=== PATIENT | female | born 1940 | race Caucasian/White ===

== ENCOUNTER 2020-05-06 09:55 | Outpatient (CLI) | payer MEDICARE, SELFPAY ==
--- NOTE | ~2020-05-06 | MM_ITS ---
EXAMINATION: MM screening mammo implant BI HISTORY: Screening mammogram. Status post bilateral mastectomy. TECHNIQUE: Craniocaudal and mediolateral oblique 3-D tomosynthesis images with implant displacement a nd synthetic 2-D images were generated. Craniocaudal and mediolateral oblique views of the breasts wi thout implant displacement were obtained using full field digital mammography. CAD analysis was submi tted and interpreted. COMPARISON: Comparison to multiple prior studies sequentially, with oldest reviewed study dated 10/08. BREAST PARENCHYMAL COMPOSITION: The breasts are almost entirely fatty. Only minimal residual breast t issue is present. FINDINGS: There are bilateral subpectoral saline implants. There is no evidence of suspicious mass, c alcification, or architectural distortion to suggest malignancy in either breast. There has been no s uspicious interval change. IMPRESSION: 1. No mammographic evidence of malignancy. 2. Recommend routine screening mammography in one year. BI-RADS Category 1: Negative Reviewed, dictated and finalized at location A.
== END 2020-05-06 09:56 | disposition home or self-care (01) ==
LOC: ANHIMG 10:00
PROVIDERS: PCP Internal Medicine; Visit Provider Obstetrics & Gynecology Gynecology
DX: Z12.31 Encounter for screening mammogram for malignant neoplasm of breast (principal)
CPT/HCPCS: 77067

== ENCOUNTER 2020-10-24 06:54 | Outpatient (NON) | payer MEDICARE, SELFPAY ==
[2020-10-25 01:18] LABS: SARS-CoV-2 RNA PCR Negative
== END 2020-10-24 06:55 ==
LOC: ANHCOVIDDT 07:02
PROVIDERS: PCP Internal Medicine; Visit Provider Nurse Practitioner
DX: Z20.828 Contact with and (suspected) exposure to other viral communicable diseases (principal); R19.7 Diarrhea, unspecified
CPT/HCPCS: 87635; C9803; U0003

== ENCOUNTER 2020-11-17 12:43 | Outpatient (CLI) | payer MEDICARE, SELFPAY ==
--- NOTE | ~2020-11-17 | XR_ITS ---
EXAMINATION: XR chest 2V EXAM DATE: 11/17/2020 12:59 INDICATION: Shortness of breath, history COPD and bronchitis. TECHNIQUE: Frontal and lateral projections of the chest obtained and reviewed. Comparison is made to prior examination from 12/13/2017. FINDINGS: Left midlung zone granuloma. The lungs are otherwise clear. There are no pleural effusions . The cardiomediastinal silhouette is within normal limits. There is no pneumothorax suspected. Th e bones and soft tissues are unremarkable. IMPRESSION: No acute cardiopulmonary findings. Reviewed, dictated and finalized at location B. 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
== END 2020-11-17 12:44 | disposition home or self-care (01) ==
PROVIDERS: PCP Internal Medicine; Visit Provider Nurse Practitioner
DX: R06.02 Shortness of breath (principal)
CPT/HCPCS: 71046

== ENCOUNTER 2021-05-31 10:46 | Emergency (ER) | payer MEDICARE, SELFPAY ==
[2021-05-31 10:48] VITALS: BP 153/104; PULSE 82; RESP 20; TEMP 36.5; O2SAT 95
[2021-05-31 11:50] LABS: Basophils Absolute Auto 0.1 K/mm3 (0.0-0.1); Basophils Percent Auto 0.5 % (0.2-1.2); Eosinophils Absolute Auto 0.1 K/mm3 (0-0.3); Hematocrit 40.7 % (37.0-47.0); Hemoglobin 12.8 g/dL (12.0-15.0); Immature Granulocyte Absolute 0.03 K/mm3 (0.00-0.031); Immature Granulocyte Percent A 0.3 % (0-0.5); Lymphocytes Absolute Auto 0.85 K/mm3 (0.9-3.2); Lymphocytes Percent Auto 8.2 % (18.3-44.2); Mean Corpuscular HGB Conc 31.4 g/dl (32-36); Mean Corpuscular Volume 95.3 fl (80-100); Mean Platelet Volume 9.9 fl (7.4-10.4); Monocytes Absolute Auto 0.7 K/mm3 (0.1-0.6); Monocytes Percent Auto 6.6 % (2.6-8.5); Neutrophils Absolute Auto 8.7 K/mm3 (1.3-6.7); Neutrophils Percent Auto 83.4 % (45.5-73.1); Platelet Count Result 243 k/mm3 (150-375); Red Blood Count 4.27 M/mm3 (4.2-5.4); Red Cell Distribution Width 13.8 % (11.5-14.5); White Blood Count 10.4 K/mm3 (4.5-10.0)
[2021-05-31 11:53] LABS: Add Urine Microscopic? NO; Appearance Urine Clear (Clear); Bilirubin Urine Negative (Negative); Blood Urine Negative (Negative); Color Urine Straw (Yellow); Glucose Urine UA Negative (Negative); Ketones Urine Negative (Negative); Leukocyte Esterase Ur Negative LEU/UL (Negative); Nitrate Urine Negative (Negative); Protein Urine Negative (Negative); Specific Grav Ur 1.008 (1.001-1.035); Urobilinogen Urine Negative mg/dL (<2.0)
[2021-05-31 12:01] LABS: Alanine Aminotransferase 14 U/L (4-35); Albumin Level 4.1 g/dL (3.5-5.1); Alkaline Phosphatase 107 U/L (38-126); Anion Gap 4 mmol/L (8-16); Aspartate Amino Transferase 23 U/L (14-36); Bilirubin,Total 0.4 mg/dL (0.2-1.3); Blood Urea Nitrogen 17 mg/dL (7-17); Carbon Dioxide 32 mmol/L (22-30); Chloride 106 mmol/L (98-107); Estimated CRCL calculation 31 ml/min; Estimated Glomerular Filt Rate 43; Glucose 119 mg/dL (65-110); Lipase 145 U/L (23-300); Potassium 4.3 mmol/L (3.4-5.0); Sodium 142 mmol/L (137-145)
--- NOTE | 2021-05-31 12:15 | PC.NURSE ---
pt left stating that she has been here for a long time, pt encouraged to stay, politely declined. pt was asked to speak to Dr Loredo, regarding lab work that was completed. pt asked to return if s/s increase or worsen
== END 2021-05-31 12:15 | disposition left against medical advice (07) ==
PROVIDERS: Emergency Provider Emergency Medicine; PCP Internal Medicine
DX: R10.31 Right lower quadrant pain (principal)
CPT/HCPCS: 36415; 80053; 81003; 83690; 85025; 99199

== ENCOUNTER → 2021-06-11 17:30 | Outpatient (CLI) | payer MEDICARE, SELFPAY ==
--- NOTE | ~2021-06-11 | MM_ITS ---
EXAMINATION: MM screening mammo implant BI HISTORY: Screening mammogram TECHNIQUE: Craniocaudal and mediolateral oblique 3-D tomosynthesis images with implant displacement a nd synthetic 2-D images were generated. Craniocaudal and mediolateral oblique views of the breasts wi thout implant displacement were obtained using full field digital mammography. CAD analysis was submi tted and interpreted. COMPARISON: Comparison to multiple prior studies sequentially, with oldest reviewed study dated 11/25. BREAST PARENCHYMAL COMPOSITION: The breasts are almost entirely fatty. FINDINGS: There are bilateral breast implants. There is no evidence of suspicious mass, calcification , or architectural distortion to suggest malignancy in either breast. There has been no suspicious in terval change. IMPRESSION: 1. No mammographic evidence of malignancy. 2. Recommend routine screening mammography in one year. BI-RADS Category 1: Negative Reviewed, dictated and finalized at location A.
== END ==
PROVIDERS: Visit Provider Obstetrics & Gynecology Gynecology
DX: Z12.31 Encounter for screening mammogram for malignant neoplasm of breast (principal)
CPT/HCPCS: 77067

== ENCOUNTER → 2021-07-15 12:04 | Outpatient (CLI) | payer MEDICARE, SELFPAY ==
--- NOTE | ~2021-07-15 | DEXA_ITS ---
Bone Density Report Name: Nikkie Rodríguez Age: 80 Sex: Female Ethnicity: White Date of : 1940 Indication: osteopenia; height loss; postmenopausal Referring Provider: ASHANTI PAEZ Study: Bone densitometry was performed. Exam Date: July 15, 2021 Accession number: [id number] Bone Density: Region BMD T-score Z-score Classification AP Spine (L1, L4) 1.049 0.1 2.7 Normal Femoral Neck (Left) 0.703 -1.3 0.9 Osteopenia Total Hip (Left) 0.792 -1.2 0.8 Osteopenia Femoral Neck (Right) 0.672 -1.6 0.6 Osteopenia Total Hip (Right) 0.726 -1.8 0.2 Osteopenia Total Hip Mean 0.759 -1.5 0.5 Osteopenia World Health Organization criteria for BMD impression classify patients as: Normal (T-score at or above -1.0), Osteopenia (T-score between -1.0 and -2.5), or Osteoporosis (T-score at or below -2.5). 10-year Fracture Risk(1): Major Osteoporotic Fracture 13% Hip Fracture 3.3% Reported Risk Factors: [place] (), Neck BMD=0.672, BMI=24.2 (1) FRAX(R) Version 3.08. Fracture probability calculated for an untreated patient. Fracture probability may be lower if the patient has received treatment. Previous Exams: Region Exam Age BMD T-score BMD Change BMD Change Date g/cm2 vs Baseline vs Previous AP Spine(L1, L4) 07/15/2021 80 1.049 0.1 0.099* 0.046* 02/07/2019 78 1.003 -0.3 0.053* -0.196* 10/28/2015 74 1.200 1.5 0.250* 0.214* 11/10/2009 68 0.985 -0.5 0.035* 0.035* 10/02/2007 66 0.950 -0.8 Total Hip(Left) 07/15/2021 80 0.792 -1.2 -0.179* -0.028* 02/07/2019 78 0.819 -1.0 -0.151* -0.085* 10/28/2015 74 0.905 -0.3 -0.065* 0.101* 09/27/2013 72 0.804 -1.1 -0.166* -0.068* 11/10/2009 68 0.872 -0.6 -0.098* -0.098* 10/02/2007 66 0.970 0.2 Total Hip(Right) 07/15/2021 80 0.726 -1.8 -0.172* 0.003 02/07/2019 78 0.723 -1.8 -0.175* -0.100* 10/28/2015 74 0.823 -1.0 -0.074* 0.051* 09/27/2013 72 0.771 -1.4 -0.126* -0.077* 11/10/2009 68 0.848 -0.8 -0.049* -0.049* 10/02/2007 66 0.897 -0.4 *Denotes significance at 95% confidence level, LSC for AP Spine = 0.022 g/cm2, LSC for Total Hip = 0.027 g/cm2 Clinical Information Provided by Patient: Has used the following medications: Vitamin D, Calcium Pa
== END ==
PROVIDERS: Visit Provider Obstetrics & Gynecology Gynecology
DX: Z78.0 Asymptomatic menopausal state (principal); M85.851 Other specified disorders of bone density and structure, right thigh; M85.852 Other specified disorders of bone density and structure, left thigh
CPT/HCPCS: 77080

== ENCOUNTER → 2021-08-04 16:14 | Outpatient (CLI) | payer MEDICARE, SELFPAY ==
--- NOTE | ~2021-08-04 | US_ITS ---
EXAMINATION: US thyroid EXAM DATE: 08/04/2021 16:33 INDICATION: E04.2 - Nontoxic multinodular goiter, thyroid toxicosis. TECHNIQUE: Multiple grayscale and Doppler images of the thyroid were obtained (by a technologist who performed the scan) and subsequently reviewed. Individual nodules and recommendations may be reporte d in accordance with TI-RADS system as designated by the 2017 ACR White Paper TI-RADS committee. Comp arison is made to prior examination from 10/09/19, 06/13/2019. FINDINGS: The right there are lobe measures 5.6 x 1.2 x 2.5 cm, the left measuring 5.1 x 2.2 x 2.3 cm. There is mildly diffusely heterogeneous thyroid echogenicity. There are some numerous scattered small thyroid nodules, largest solid nodule in the left thyroid lobe measuring up to 1 cm, not significantly gomez ed for over 2 years. These nodules are most likely benign. IMPRESSION: Multinodular goiter, stable. Consider follow-up thyroid ultrasound in 2 years. Reviewed, dictated and finalized at location A.
== END ==
PROVIDERS: PCP Internal Medicine; Visit Provider Internal Medicine Endocrinology, Diabetes & Metabolism
DX: E04.2 Nontoxic multinodular goiter (principal)
CPT/HCPCS: 76536

== ENCOUNTER 2021-09-10 12:30 | Outpatient (RCR) | payer MEDICARE, SELFPAY ==
--- NOTE | 2021-08-13 11:35 | OTOPEVAL ---
OCCUPATIONAL THERAPY INITIAL EVALUATION REPORT 08/13/21 Thank you for referring Nikkie Rodríguez to [facility].? The patient is scheduled to be seen for therapy? 1x/week for 4 weeks. Please review, sign, date and return this plan of care TREVOR. I agree with and certify that the following plan of care is medically necessary. Referring Physician Date Referring Provider: BASIL Bell *OT Outpatient Evaluation Start: 08/13/21 10:25 Outpatient Past Medical History Past Medical History Source of Past Medical History Recalled from Previous Visit, Confirmed with Patient/Family Neurological History Hx Transient Ischemic Attacks (TIA) Yes Respiratory History Hx Chronic Obstructive Pulmonary Disease Yes (COPD) Musculoskeletal History Hx Arthritis Yes Hx Osteoporosis Yes Reproductive History Hx Post Menopausal Yes Evaluation Information Problem Diagnosis Pain in right hand Cause OA Subjective Information Patient presents today wearing Query Text:As Reported By Patient/ a compression glove on the Family right hand that she has been wearing for some pain relief. She also takes Tylenol or Aleve for pain. Prior Level of Function Activity Level (Last 3 Months) Hand Dominance Right Activity of Daily Living Ability Independent Indoor/Home Mobility Independent Community Mobility Independent Cooking Yes Cleaning Yes Laundry Yes Shopping Yes Driving Yes Comments Additional Prior Level of Function Patient lives alone and is Comments independent with ADLs and housework. She gardens and states her hands get really sore the day after she does her gardening. Pain Assessment Timing of Pain Assessment Timing of Pain Assessment Assessment Pain Scale Pain Scale Used Numeric (1 - 10) Self Report Pain Assessment Left Hand(s) Reported Pain Level 3 Pain Description Aching,Dull Right Hand(s) Reported Pain Level 0 Lowest Pain Intensity 0 Greatest Pain Intensity 8 Pain Score Pain Score 0,3: Self Report Interventions Used Interventions Used By Clinicians Education,Exercise,Heat Upper Extremity Range of Motion Scapular/ Shoulder Range of Motion Bilateral Reason Not Measured WFL/Left,WFL/Right Scapular/Shoulder Range of Motion (+) pain with right shoulder Comments IR Elbow/For
--- NOTE | 2021-09-10 13:15 | OTOPEVAL ---
OCCUPATIONAL THERAPY RE-EVALUATION AND DISCHARGE NOTE 09/10/21 Nikkie is a 80 year-old female who has attended outpatient OT 1x/week since 08/13/21 for hand pain with dx of OA. She has severe OA deformities in the thumbs and fingers. OT treatments have included thermal modalities, education on joint protection and work simplification, and gentle active ROM. 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 Unfortunately, it appears as though she has reached her maximal benefit with OT. Referred patient to PT for aquatic therapy services for a more body-gay treatment approach as the OA also affects her neck, back, hips, and LEs. Thank you for referring Nikkie Rodríguez to [facility].? Please review, sign, date and return this D/C Note TREVOR. I agree with and certify that the following plan of care is medically necessary. Referring Physician Date Referring Provider: Ernestina Pickering, BASIL *OT Outpatient Evaluation Start: 08/13/21 10:25 Evaluation Information Problem Diagnosis Pain in right hand Cause OA Subjective Information Patient presents today for re- Query Text:As Reported By Patient/ evaluation after 4 OT sessions Family for OA. She reports minimal relief from therapy. She continues to have intermittent pain in the right shoulder, bilateral hands, neck and back . She states that she has not really tried many of the joint protection principles during ADLs. Pain Assessment Timing of Pain Assessment Timing of Pain Assessment Re-assessment Pain Scale Pain Scale Used Numeric (1 - 10) Self Report Pain Assessment Right Shoulder(s) Reported Pain Level 0 Pain Frequency Intermittent Lowest Pain Intensity 0 Greatest Pain Intensity 10 Right Finger, Index Reported Pain Level 0 Pain Frequency Intermittent Lowest Pain Intensity 0 Greatest Pain Intensity 10 Pain Score Pain Score 0,0: Self Report Additional Pain Score Comments Patient reports no pain while at rest, but reports having 10 /10 pain intermittently. States she always has shoulder and neck pain upon waking up in the morning. Uses a heating pad for her neck and back daily. Interventions Used Interventions Used By Clinicians Education,Exercise,Heat Upper Extremity Range of Motion Scapular/ Shoulder Range of Motion Bilateral Reason Not Measured WFL/Left,WFL/Right Scapular/Shoulder Range of Motion At the initial evaluation, she Comments
== END 2021-09-11 10:51 | disposition home or self-care (01) ==
LOC: ANHOT 12:30
PROVIDERS: PCP Internal Medicine; Visit Provider Clinical Nurse Specialist
DX: M79.641 Pain in right hand (principal)
CPT/HCPCS: 97035; 97110; 97140; 97165

== ENCOUNTER 2021-12-14 10:30 | Outpatient (RCR) | payer MEDICARE, SELFPAY | END 2021-12-14 10:31 | disposition home or self-care (01) | LOC: ANHPT 10:30 | PROVIDERS: PCP Internal Medicine; Visit Provider Clinical Nurse Specialist | DX: M19.90 Unspecified osteoarthritis, unspecified site (principal); R52 Pain, unspecified | CPT/HCPCS: 99199 ==

== ENCOUNTER 2021-12-14 10:41 | Emergency (ER) | payer MEDICARE, SELFPAY ==
[2021-12-14] VITALS (9 sets, daily range): BP systolic 131–190; BP diastolic 76–95; PULSE 71–76; RESP 12–22; TEMP 36.4–36.7; O2SAT 92–99
--- NOTE | ~2021-12-14 | XR_ITS ---
XR lumbar spine min 4V DATE: 12/14/2021 12:47 INDICATION: Low back pain radiating to right hip. No known injury. TECHNIQUE: AP, lateral, coned lateral lumbosacral and bilateral oblique views COMPARISON: 08/31/2018 MRI lumbar spine 2. lumbar spine FINDINGS: There is diffuse osteopenia. There is and moderate rotatory lumbar dextroscoliosis. There is severe degenerative disc disease and mild retrolisthesis at L2-3 and L3-4. There is severe degenerative disc disease and approximately 8 mm upper grade 1 anterolisthesis at L4- 5. There is prominent degenerative change at the apophyseal joints of the mid and lower lumbar and lumbo sacral spine. The included lower thoracic and lumbar pedicles appear intact. There is The sacroiliac joints are intact. There is extensive calcification of the abdominal aorta and common and external iliac arteries withou t apparent aneurysm. 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
--- NOTE | 2021-12-14 11:56 | ED.EXTPRO ---
HPI - Extremity Problem General Chief complaint: Extremity Problem,Nontraumatic Stated complaint: right hip pain radiating to toes Time Seen by Provider: 12/14/21 11:27 Source: patient Mode of arrival: ambulatory Limitations: no limitations History of Present Illness HPI Narrative: 81-year-old female She has a history of arthritis and bursitis and has been getting cortisone injections for a long time, usually in her left leg and being done in [place] however last she had one done at a different [facility] facility in [place] in the right leg From where she points it looks like they were probably trying to hit the trochanteric bursa She says that within the first day after getting those shots she started having pain in her whole right side basically from her hip all the way down to her ankle She could not get a hold of anybody there and when the pain lasted through the weekend came to the ER this morning She does not have a fever or rash, she does not have any numbness or weakness, she does not have any swelling or discoloration, she has not had any injuries or falls in the interim, she does not complain about back pain Related Data Home Medications Medication Instructions Recorded Confirmed calcium acetate(phosphat bind) 667 667 mg PO DAILY cap 11/12/19 12/02/21 mg capsule cholecalciferol (vitamin D3) 75 3,000 unit PO DAILY 11/12/19 12/02/21 mcg (3,000 unit) tablet clonazepam 0.5 mg tablet 0.5 mg PO DAILY 11/12/19 12/02/21 escitalopram oxalate 5 mg tablet 5 mg PO DAILY 11/12/19 12/02/21 magnesium 30 mg tablet 30 mg PO DAILY 11/12/19 12/02/21 zolpidem 5 mg tablet 5 mg PO .[facility] PRN tablet 11/12/19 12/02/21 acetaminophen 650 mg 650 mg PO DAILY tablet 02/12/20 12/02/21 tablet,extended release loratadine 10 mg tablet 10 mg PO DAILY 05/19/21 12/02/21 Allergies Allergy/AdvReac Type Severity Reaction Status Date / Time adhesive Allergy Unknown Itching Verified 09/23/21 10:28 Sulfa (Sulfonamide Allergy Unknown facial Verified 09/23/21 10:28 Antibiotics) swelling Review of Systems Review of Systems: All systems reviewed & are unremarkable except as noted in HPI and below Constitutional: Constitutional: Reports no additional constitutional complaints, Denies chills, Denies fatigue, Denies fever(s), Denies headache(s) and Denies weakness ENT: Denies headache(s) Cardiovascular: Cardiovascular: Denies dyspnea Gastrointestinal: Gastrointestinal: Denies abdominal pain, Denies diarrhea and Denies vomiting Genitourinary: Genitourinary: Denies urinary frequency Musculoskeletal: Musculoskeletal: Denies back pain, Reports myalgias, Denies deformity, Reports arthralgias, Reports joint swelling and Denies numbness Integumentary/Breasts: Skin/Breast: Denies rash and Denies wounds Neurologic: Denies headache(s), Denies focal weakness and Denies numbness Psychiatric: Psychiatric: Reports no additional psychiatric complaints Endocrine: Endocrine: Reports no additional endocrine complaints [facility] Past Medical History Medical History Age related osteoporosis Bipolar 1 disorder Cataract Chronic renal failure COPD (chronic obstructive pulmonary disease) Fibrocystic breast disease GERD (gastroesophageal reflux disease) Graves disease Hyperglycemia Hyperlipidemia Hyperthyroidism Migraine Osteoarthritis Osteopenia of both hips Pulmonary emphysema Spinal stenosis Stroke Type 2 diabetes mellitus Surgical History Surgical History H/O breast surgery 2 Reconstructive H/O mastectomy Double 1975 H/O neck surgery Family History Family History Father Family history of osteoarthritis Diabetes mellitus Heart disease Sibling Family history of malignant melanoma, Onset Age: 60 Patient's sister is Mother Family history of mal
[2021-12-14] MEDS: HYDROcodone/acetaminophen (*CRX) 7.5-325 MG TABLET 1 TAB PO (12:16)
[2021-12-14 12:26] LABS: CRP 0.5 mg/dL (<1.0)
[2021-12-14 13:00] LABS: Erythrocyte Sedimentation Rate 38 mm/hr (0-20)
== END 2021-12-14 15:18 | disposition home or self-care (01) ==
PROVIDERS: Emergency Provider Emergency Medicine; PCP Internal Medicine
DX: M79.604 Pain in right leg (principal); E11.22 Type 2 diabetes mellitus with diabetic chronic kidney disease; N18.9 Chronic kidney disease, unspecified; J43.9 Emphysema, unspecified; E05.00 Thyrotoxicosis with diffuse goiter without thyrotoxic crisis or storm; E78.5 Hyperlipidemia, unspecified; K21.9 Gastro-esophageal reflux disease without esophagitis; M81.0 Age-related osteoporosis without current pathological fracture; M85.88 Other specified disorders of bone density and structure, other site; M19.90 Unspecified osteoarthritis, unspecified site; F31.9 Bipolar disorder, unspecified; N60.19 Diffuse cystic mastopathy of unspecified breast; Z86.73 Personal history of transient ischemic attack (TIA), and cerebral infarction without residual deficits; Z90.13 Acquired absence of bilateral breasts and nipples; Z87.891 Personal history of nicotine dependence; M51.36 Other intervertebral disc degeneration, lumbar region
CPT/HCPCS: 36415; 72110; 85652; 86140; 99283; A9270

== ENCOUNTER 2021-12-15 15:40 | Emergency (ER) | payer MEDICARE, SELFPAY ==
[2021-12-15 15:47] VITALS: BP 153/66; PULSE 86; RESP 20; TEMP 36.5; O2SAT 99
--- NOTE | 2021-12-15 16:12 | ED.EXTPRO ---
HPI - Extremity Problem General Chief complaint: Extremity Problem,Nontraumatic Stated complaint: leg pain Source: patient Mode of arrival: ambulatory Limitations: no limitations History of Present Illness HPI Narrative: 81-year-old female presents to [facility] with complaints of pain to her right leg for the past few days. Patient reports that the pain started after she received a cortisone injection to her right knee. Patient reports that the pain is present from her right hip down to her right ankle. Patient reports that she is attempted to contact the orthopedic physician with no return call. Patient was evaluated at [facility] last night and had normal x-rays completed. Patient reports that she received [place] at that time of visit but vomited after taking her medication. Patient has been taking [id number] Advil and Tylenol with minimal relief. Patient denies erythema, swelling, numbness or tingling. Patient reports that the pain is worse with movement or range of motion. MD Complaint: extremity pain Onset (ago): day(s) (2) Location: right Relieving factors: nothing Exacerbating factors: range of motion and weight bearing Associated symptoms: denies other symptoms Related Data Home Medications Medication Instructions Recorded Confirmed calcium acetate(phosphat bind) 667 667 mg PO DAILY cap 11/12/19 12/02/21 mg capsule cholecalciferol (vitamin D3) 75 3,000 unit PO DAILY 11/12/19 12/02/21 mcg (3,000 unit) tablet clonazepam 0.5 mg tablet 0.5 mg PO DAILY 11/12/19 12/02/21 escitalopram oxalate 5 mg tablet 5 mg PO DAILY 11/12/19 12/02/21 magnesium 30 mg tablet 30 mg PO DAILY 11/12/19 12/02/21 zolpidem 5 mg tablet 5 mg PO .[facility] PRN tablet 11/12/19 12/02/21 acetaminophen 650 mg 650 mg PO DAILY tablet 02/12/20 12/02/21 tablet,extended release loratadine 10 mg tablet 10 mg PO DAILY 05/19/21 12/02/21 Allergies Allergy/AdvReac Type Severity Reaction Status Date / Time adhesive Allergy Unknown Itching Verified 09/23/21 10:28 Sulfa (Sulfonamide Allergy Unknown facial Verified 09/23/21 10:28 Antibiotics) swelling Review of Systems Constitutional: Constitutional: Denies chills, Denies fatigue, Denies fever(s) and Denies weakness Cardiovascular: Cardiovascular: Denies chest pain, Denies rapid heart rate, Denies radiating jaw, neck or arm pain and Denies slow heart rate Respiratory: Respiratory: Denies cough Gastrointestinal: Gastrointestinal: Denies abdominal pain, Denies diarrhea, Denies nausea and Denies vomiting Musculoskeletal: Comments: Right leg pain Integumentary/Breasts: Skin/Breast: Denies rash PMFSH Past Medical History Medical History Age related osteoporosis Bipolar 1 disorder Cataract Chronic renal failure COPD (chronic obstructive pulmonary disease) Fibrocystic breast disease GERD (gastroesophageal reflux disease) Graves disease Hyperglycemia Hyperlipidemia Hyperthyroidism Migraine Osteoarthritis Osteopenia of both hips Pulmonary emphysema Spinal stenosis Stroke Type 2 diabetes mellitus Surgical History Surgical History H/O breast surgery 2 Reconstructive H/O mastectomy Double 1975 H/O neck surgery Family History Family History Father Family history of osteoarthritis Diabetes mellitus Heart disease Sibling Family history of malignant melanoma, Onset Age: 60 Patient's sister is Mother Family history of malignant neoplasm of breast in first degree relative, Onset Age: 56 Patient's mother is Grandparent No problems noted. Other Depression Family history of alcoholism Family history of arthritis Family history of cardiovascular disease Family history of hearing loss Family history of obesity Social History Social History (Reviewed
== END 2021-12-15 16:25 | disposition home or self-care (01) ==
PROVIDERS: Emergency Provider Nurse Practitioner Family; PCP Internal Medicine
DX: M79.604 Pain in right leg (principal); K21.9 Gastro-esophageal reflux disease without esophagitis; E05.00 Thyrotoxicosis with diffuse goiter without thyrotoxic crisis or storm; E78.5 Hyperlipidemia, unspecified; M19.90 Unspecified osteoarthritis, unspecified site; M85.88 Other specified disorders of bone density and structure, other site; M48.00 Spinal stenosis, site unspecified; Z86.73 Personal history of transient ischemic attack (TIA), and cerebral infarction without residual deficits; E11.9 Type 2 diabetes mellitus without complications; J44.9 Chronic obstructive pulmonary disease, unspecified; M81.0 Age-related osteoporosis without current pathological fracture
CPT/HCPCS: 99213; G0463

== ENCOUNTER 2022-02-27 22:17 | Emergency (ER) | payer MEDICARE, SELFPAY ==
--- NOTE | ~2022-02-27 | CT_ITS ---
EXAMINATION: CT hip RT wo con DATE: 02/27/2022 23:25 INDICATION: Recent right hip fracture with new hip injury. TECHNIQUE: High resolution computed tomography (CT) of the right hip was performed without intravenou s contrast. Additional sagittal and coronal reconstructions were performed. Automated exposure contro l and iterative reconstruction technique were employed. The dose-length product was 282.49 mGy-cm. COMPARISON: None FINDINGS: Right total hip arthroplasty. There is a periprosthetic fracture with minimally displaced fractures i nvolving the greater trochanter and posterior subtrochanteric and proximal femur. There is superomedi al distraction of a comminuted fracture fragment of the lesser trochanter. Unclear whether the fractu red and preceded the arthroplasty placement. No other fractures identified. There is a subcutaneous h ematoma anterior and lateral to the right hip. Additional deeper small hematoma situated between the right radius morteza and medius muscles. There are few diverticula along the visualized sigmoid colon . Morris catheter within the decompressed bladder. No pathologically enlarged right pelvic or inguinal lymphadenopathy. IMPRESSION: 1. Right total hip arthroplasty with periprosthetic fracture at the trochanteric subtrochanteric prox imal right femur. In the absence of prior imaging it is unclear whether the fracture is new since art hroplasty placement. Reviewed, dictated and finalized at location A. IMPRESSION: 1. Right total hip arthroplasty with periprosthetic fracture at the trochanteri c subtrochanteric proximal right femur. In the absence of prior imaging it is u nclear whether the fracture is new since arthroplasty placement.
--- NOTE | 2022-02-27 22:22 | ED.FALL ---
HPI - Fall General Chief Complaint: Fall Stated Complaint: fall on right hip s/p r hip replacement History of Present Illness HPI Narrative: 81-year-old female presents the emergency room for evaluation of a fall injury. Patient states that she is in a rehab facility for a recent right hip repair status post 1 week. Patient states that she fell while using her walker injuring her right hip. Patient states she was unable to ambulate following the injury. Related Data Allergies Allergy/AdvReac Type Severity Reaction Status Date / Time No Known Allergies Allergy Verified 02/27/22 22:32 Review of Systems Review of Systems: CONSTITUTIONAL: Denies fever, chills, or sweats. EYES: Denies visual changes, redness, or discharge. ENT: Denies rhinorrhea, congestion, sore throat, or otalgia. CARDIOVASCULAR: Denies chest pain, palpitations, or edema. RESPIRATORY: Denies cough or dyspnea. GASTROINTESTINAL: Denies abdominal pain, nausea, vomiting, or diarrhea. GENITOURINARY: Denies dysuria or hematuria. SKIN: Denies rash or itching. MUSCULOSKELETAL: Reports right hip pain NEUROLOGIC: Denies headache, numbness, dizziness, or weakness. PSYCHIATRIC: Denies anxiety or depression. Exam Narrative: GENERAL: Well-appearing, well-nourished, and in no acute distress. HEAD: Normocephalic, atraumatic. EYES: PERRLA and EOMI. CHEST: Clear to auscultation. No respiratory distress. No wheezes rales or rhonchi HEART: Regular rate and rhythm. No murmur heard. Normal peripheral pulses. ABDOMEN: Soft, nontender, nondistended, normal active bowel sounds. EXTREMITIES: Right hip: Healing wound. Tenderness to right inguinal area. Right lower extremity is shortened and externally rotated; neurovascular is intact distally SKIN: Warm, dry, no rash. NEURO: No focal deficits. Alert and oriented x3. PSYCH: Normal mood and affect. Course Vital Signs Vital signs: Vital Signs Temperature 36.6 C 02/27/22 22:23 Pulse Rate 78 02/27/22 22:23 Respiratory Rate 18 02/27/22 22:23 Blood Pressure 113/82 02/27/22 22:23 Pulse Oximetry 94 02/27/22 22:23 Temperature 36.6 C 02/27/22 22:23 Pulse Rate 78 02/27/22 23:36 Respiratory Rate 18 02/27/22 23:36 Blood Pressure 158/71 H 02/27/22 23:36 Pulse Oximetry 96 02/27/22 23:36 MDM - Fall MDM Narrative Medical decision making narrative: 81-year-old female presents to the emergency room for evaluation of right hip pain status post fall. Patient had a right total hip arthroplasty 1 week ago at [facility]. Patient presented complaining of right hip pain, right leg was shortened and externally rotated. CT scan showed new fractures to the proximal femoral and right greater trochanter. Medical Records Attestation: I reviewed the patient's medical records. Lab Data Attestation: I reviewed the patient's lab results. Result diagrams: 02/27/22 22:30 02/27/22 22:30 Labs: Lab Results 02/27/22 02/27/22 Range/Units 22:30 22:30 WBC 9.0 (4.5-10.0) K/mm3 RBC 3.14 L (4.2-5.4) M/mm3 Hgb 9.8 L (12.0-15.0) g/dL Hct 30.5 L (37.0-47.0) % MCV 97.1 (80-100) fl MCH 31.2 (26-34) pg MCHC 32.1 (32-36) g/dl RDW 13.5 (11.5-14.5) % Plt Count 379 H (150-375) k/mm3 MPV 9.7 (7.4-10.4) fl Immature Gran % (Auto) 1.2 H (0-0.5) % Neut % (Auto) 65.9 (45.5-73.1) % Lymph % (Auto) 15.5 L (18.3-44.2) % [place] % (Auto) 10.3 H (2.6-8.5) % Eos % (Auto) 6.5 H (0-4.4) % Baso % (Auto) 0.6 (0.2-1.2) % Lymph # (Auto) 1.39 (0.9-3.2) K/mm3 [place] # (Auto) 0.9 H (0.1-0.6) K/mm3 Eos # (Auto) 0.6 H (0-0.3) K/mm3 Baso # (Auto) 0.1 (0.0-0.1) K/mm3 Abs Immat Gran (auto) 0.11 H (0.00-0.031) K/mm3 Absolute Neuts (auto) 5.9 (1.3-6.7) K/mm3 Absolute Nucleated RBC 0.0 (0.0-0.012) K/mm3 Nucleated RBC % 0.0 (0.0-0.2) % Sodium 137 (137-145) mmol/L Potassium 3.7 (3.4-5.0) mmol/L Chloride 103 (98-107) mmol/L Car
[2022-02-27 22:23] VITALS: BP 113/82; PULSE 78; RESP 18; TEMP 36.6; O2SAT 94
[2022-02-27 22:35] LABS: Basophils Absolute Auto 0.1 K/mm3 (0.0-0.1); Basophils Percent Auto 0.6 % (0.2-1.2); Eosinophils Absolute Auto 0.6 K/mm3 (0-0.3); Eosinophils Percent Auto 6.5 % (0-4.4); Hematocrit 30.5 % (37.0-47.0); Hemoglobin 9.8 g/dL (12.0-15.0); Immature Granulocyte Absolute 0.11 K/mm3 (0.00-0.031); Immature Granulocyte Percent A 1.2 % (0-0.5); Lymphocytes Absolute Auto 1.39 K/mm3 (0.9-3.2); Lymphocytes Percent Auto 15.5 % (18.3-44.2); Mean Corpuscular HGB Conc 32.1 g/dl (32-36); Mean Corpuscular Hemoglobin 31.2 pg (26-34); Mean Corpuscular Volume 97.1 fl (80-100); Mean Platelet Volume 9.7 fl (7.4-10.4); Monocytes Absolute Auto 0.9 K/mm3 (0.1-0.6); Monocytes Percent Auto 10.3 % (2.6-8.5); Neutrophils Absolute Auto 5.9 K/mm3 (1.3-6.7); Neutrophils Percent Auto 65.9 % (45.5-73.1); Platelet Count Result 379 k/mm3 (150-375); Red Blood Count 3.14 M/mm3 (4.2-5.4); Red Cell Distribution Width 13.5 % (11.5-14.5)
[2022-02-27 22:48] LABS: Alanine Aminotransferase 10 U/L (4-35); Albumin Level 3.1 g/dL (3.5-5.1); Alkaline Phosphatase 105 U/L (38-126); Anion Gap 6 mmol/L (8-16); Aspartate Amino Transferase 25 U/L (14-36); Bilirubin,Total 0.4 mg/dL (0.2-1.3); Blood Urea Nitrogen 18 mg/dL (7-17); Calcium 8.7 mg/dL (8.4-10.2); Carbon Dioxide 28 mmol/L (22-30); Chloride 103 mmol/L (98-107); Estimated Glomerular Filt Rate 36; Glucose 131 mg/dL (65-110); Potassium 3.7 mmol/L (3.4-5.0); Sodium 137 mmol/L (137-145)
[2022-02-27] MEDS: HYDROmorphone HCL INJ (*CRX) 1 MG/ML SYR IV PUSH (22:54)
[2022-02-27 23:36] VITALS: BP 158/71; PULSE 78; RESP 18; O2SAT 96
--- NOTE | 2022-02-28 00:04 | PC.NURSE ---
Update given to Aurelia LONG at [facility]. [phone]
[2022-02-28 01:14] VITALS: BP 145/67; PULSE 90; RESP 18; O2SAT 97
[2022-02-28 01:50] LABS: SARS-CoV-2 RNA PCR Negative
[2022-02-28] MEDS: HYDROmorphone HCL INJ (*CRX) 1 MG/ML SYR IV PUSH (02:14)
[2022-02-28 02:15] VITALS: BP 142/71; PULSE 92; RESP 18; O2SAT 97
--- NOTE | 2022-02-28 02:25 | PC.NURSE ---
Handoff given to [facility] ED. Awaiting ambulance arrival for transport. Updated Aurelia at [facility] via telephone at this time.
--- NOTE | 2022-02-28 02:30 | PC.NURSE ---
Consent for transfer to [facility] signed by patient and placed in chart.
[2022-02-28 03:13] VITALS: BP 104/90; PULSE 93; RESP 18; O2SAT 95
[2022-02-28 03:24] VITALS: BP 125/68
== END 2022-02-28 03:25 | disposition short-term general hospital (02) ==
PROVIDERS: Emergency Provider Nurse Practitioner Family; PCP Internal Medicine
DX: S72.111A Displaced fracture of greater trochanter of right femur, initial encounter for closed fracture (principal); S72.21XA Displaced subtrochanteric fracture of right femur, initial encounter for closed fracture; S72.001A Fracture of unspecified part of neck of right femur, initial encounter for closed fracture; M97.01XA Periprosthetic fracture around internal prosthetic right hip joint, initial encounter; Z20.822 Contact with and (suspected) exposure to COVID-19; W18.39XA Other fall on same level, initial encounter
CPT/HCPCS: 36415; 51702; 73700; 80053; 85025; 96374; 96376; 99285; C9803; J1170; U0003; U0005

== ENCOUNTER 2022-04-08 16:02 | Emergency (ER) | payer MEDICARE, SELFPAY ==
[2022-04-08] VITALS (33 sets, daily range): BP systolic 115–163; BP diastolic 57–96; PULSE 78–86; RESP 16–18; TEMP 36.8; O2SAT 86–100
[2022-04-08 16:36] LABS: Basophils Percent Auto 0.4 % (0.2-1.2); Eosinophils Absolute Auto 0.5 K/mm3 (0-0.3); Eosinophils Percent Auto 6.6 % (0-4.4); Hematocrit 34.6 % (37.0-47.0); Hemoglobin 10.4 g/dL (12.0-15.0); Immature Granulocyte Absolute 0.02 K/mm3 (0.00-0.031); Immature Granulocyte Percent A 0.3 % (0-0.5); Lymphocytes Absolute Auto 0.67 K/mm3 (0.9-3.2); Lymphocytes Percent Auto 9.1 % (18.3-44.2); Mean Corpuscular HGB Conc 30.1 g/dl (32-36); Mean Platelet Volume 9.7 fl (7.4-10.4); Monocytes Absolute Auto 0.5 K/mm3 (0.1-0.6); Monocytes Percent Auto 7.3 % (2.6-8.5); Neutrophils Absolute Auto 5.6 K/mm3 (1.3-6.7); Neutrophils Percent Auto 76.3 % (45.5-73.1); Platelet Count Result 414 k/mm3 (150-375); Red Blood Count 3.72 M/mm3 (4.2-5.4); Red Cell Distribution Width 14.6 % (11.5-14.5); White Blood Count 7.4 K/mm3 (4.5-10.0)
[2022-04-08 16:49] LABS: Alanine Aminotransferase 8 U/L (6-35); Albumin Level 3.9 g/dL (3.5-5.1); Alkaline Phosphatase 213 U/L (38-126); Anion Gap 3 mmol/L (8-16); Aspartate Amino Transferase 23 U/L (14-36); Bilirubin,Total 0.2 mg/dL (0.2-1.3); Blood Urea Nitrogen 18 mg/dL (7-17); CRP 1.6 mg/dL (<1.0); Calcium 9.4 mg/dL (8.4-10.2); Carbon Dioxide 31 mmol/L (22-30); Chloride 104 mmol/L (98-107); Estimated CRCL calculation 28 ml/min; Estimated Glomerular Filt Rate 40; Glucose 125 mg/dL (65-110); Potassium 4.1 mmol/L (3.4-5.0); Sodium 138 mmol/L (137-145)
--- NOTE | 2022-04-08 17:02 | ED.WOUNDLAC ---
HPI - Wound/Laceration General Chief Complaint: Wound/Laceration <Ruba Moscoso PA-C - Last Filed: 04/08/22 19:29> Stated Complaint: surgical wound infection <Ruba Moscoso PA-C - Last Filed: 04/08/22 19:29> Time Seen by Provider: 04/08/22 16:49 <Ruba Moscoso PA-C - Last Filed: 04/08/22 19:29> History of Present Illness HPI narrative: Patient is a 81-year-old female with a history of a recent right hip arthroplasty and ORIF done at [facility] (February) here for evaluation of her surgical wound. Patient is currently in a rehab program and gets wound care every week. She was sent to the ED per recommendation of her wound care nurse for evaluation of increased green/yellow drainage from the wound increased over the past week. Area around the wound is also red and she reports subjective fevers. Patient has been compliant with her dressings and has otherwise been tolerating her rehab; not weight bearing yet. Denies nausea, vomiting. <Ruba Moscoso PA-C - Last Filed: 04/08/22 19:29> Related Data Home Medications: Home Medications Medication Instructions Recorded Confirmed calcium acetate(phosphat bind) 667 667 mg PO DAILY 11/12/19 04/09/22 mg capsule cholecalciferol (vitamin D3) 75 3,000 unit PO DAILY 11/12/19 04/09/22 mcg (3,000 unit) tablet clonazepam 0.5 mg tablet 0.5 mg PO DAILY 11/12/19 04/09/22 escitalopram oxalate 5 mg tablet 5 mg PO DAILY 11/12/19 04/09/22 magnesium 30 mg tablet 30 mg PO DAILY 11/12/19 04/09/22 zolpidem 5 mg tablet 5 mg PO .QHS PRN Sleep 11/12/19 04/09/22 acetaminophen 650 mg 650 mg PO DAILY 02/12/20 04/09/22 tablet,extended release (Tylenol 8 Hour) loratadine 10 mg tablet (Claritin) 10 mg PO DAILY 05/19/21 04/09/22 albuterol sulfate 90 mcg/actuation inhalation 04/09/22 aerosol inhaler (ProAir HFA) <Ruba Moscoso PA-C - Last Filed: 04/08/22 19:29> Allergies/Adverse Reactions: Allergies Allergy/AdvReac Type Severity Reaction Status Date / Time adhesive Allergy Unknown Itching Verified 04/08/22 17:34 Sulfa (Sulfonamide Allergy Unknown facial Verified 04/08/22 17:34 Antibiotics) swelling <Ruba Moscoso PA-C - Last Filed: 04/08/22 19:29> Review of Systems Review of Systems: Gen: Reports chills Eyes: Denies eye pain or visual change ENT: Denies congestion Respiratory: Denies shortness of breath or cough CV: Denies chest pain or palpitations GI: Denies abdominal pain nausea, emesis or diarrhea denies burning, urgency, frequency or hematuria Musculoskeletal: Denies back pain or muscle pain Neuro: Denies numbness, tingling, weakness or focal weakness Skin: Reports surgical wound drainage Except as documented, all other systems reviewed and negative <Ruba Moscoso PA-C - Last Filed: 04/08/22 19:29> [facility] Past Medical History Medical History: Medical History Abnormal EKG Age related osteoporosis Bipolar 1 disorder Cataract Chronic renal failure COPD (chronic obstructive pulmonary disease) Fibrocystic breast disease GERD (gastroesophageal reflux disease) Graves disease Hyperglycemia Hyperlipidemia Hyperthyroidism Migraine Osteoarthritis Osteopenia of both hips Pulmonary emphysema Spinal stenosis Stroke Type 2 diabetes mellitus <Ruba Moscoso PA-C - Last Filed: 04/08/22 19:29> Surgical History Surgical History: Surgical History H/O breast surgery 2 Reconstructive H/O mastectomy Double 1975 H/O neck surgery <Ruba Moscoso PA-C - Last Filed: 04/08/22 19:29> Family History Family History: Family History Father Family history of osteoarthritis Diabetes mellitus Heart disease Sibling Family history of malignant melanoma, Onset Ag
[2022-04-08 19:26] LABS: SARS-CoV-2 RNA PCR Negative
[2022-04-09] VITALS (71 sets, daily range): BP systolic 112–162; BP diastolic 51–96; PULSE 76–102; RESP 14–18; TEMP 36.5–37; O2SAT 32–100
--- NOTE | 2022-04-09 00:16 | PC.NURSE ---
Spoke with [facility] transfer center and are still waiting on a bed for placement at this time.
--- NOTE | 2022-04-09 08:05 | PC.NURSE ---
[facility] at full capacity pt continues on waiting list for transfer
--- NOTE | 2022-04-09 09:15 | PC.NURSE ---
Patient is pleasantly confused. Oriented to self, oriented to city but not hospital, states it is 192 but eventually corrected to 2021. After about 1- minutes, she was able to tell me she lives in [place] but originally asked this RN to check her license. MD aware of confusion. Will continue to monitor. No attempts to get OOB unassisted. BP elevated at 150/88, HR 94. Per charting, patient takes 5 mg of Bystolic daily. MD aware and asked to check temperature. No temperature at this time, 98.6 oral.
--- NOTE | 2022-04-09 10:52 | PC.NURSE ---
Pharmacy to send [facility]
[2022-04-09] MEDS: NEBIVOLOL HCL 5 MG TABLET PO (11:19)
--- NOTE | 2022-04-09 12:25 | PC.NURSE ---
Michaela from [facility] transfer center called for update on patient. Working on bed at this time.
--- NOTE | 2022-04-09 16:57 | PC.NURSE ---
No bed at [facility]
--- NOTE | 2022-04-09 23:20 | PC.NURSE ---
called [facility] to request transport. ETA [id number]. called [facility] to request transport. declined
[2022-04-10] VITALS (9 sets, daily range): BP systolic 135–154; BP diastolic 63–87; PULSE 81–94; RESP 16–20; O2SAT 91–98
--- NOTE | 2022-04-10 01:37 | PC.NURSE ---
[facility] called With ETA update [id number]
--- NOTE | 2022-04-10 02:08 | PC.NURSE ---
@[phone] called [facility] to request transport. declined
--- NOTE | 2022-04-10 02:45 | PC.NURSE ---
[facility] called and update ETA to [id number]. Crew is enroute.
== END 2022-04-10 03:26 | disposition short-term general hospital (02) ==
PROVIDERS: Emergency Medicine; Physician Assistant; Emergency Provider Emergency Medicine; PCP Internal Medicine
DX: T81.41XA Infection following a procedure, superficial incisional surgical site, initial encounter (principal); Z96.641 Presence of right artificial hip joint; Z20.822 Contact with and (suspected) exposure to COVID-19; J44.9 Chronic obstructive pulmonary disease, unspecified; E11.22 Type 2 diabetes mellitus with diabetic chronic kidney disease; N18.9 Chronic kidney disease, unspecified; K21.9 Gastro-esophageal reflux disease without esophagitis; E05.00 Thyrotoxicosis with diffuse goiter without thyrotoxic crisis or storm; E78.5 Hyperlipidemia, unspecified; M19.90 Unspecified osteoarthritis, unspecified site; M85.88 Other specified disorders of bone density and structure, other site; F31.9 Bipolar disorder, unspecified; Z86.711 Personal history of pulmonary embolism; Z86.73 Personal history of transient ischemic attack (TIA), and cerebral infarction without residual deficits; Z90.13 Acquired absence of bilateral breasts and nipples; Z87.891 Personal history of nicotine dependence
CPT/HCPCS: 36415; 80053; 85025; 86140; 87070; 87147; 87181; 87186; 87205; 96365; 96366; 99285; A9270; C9803; J0690; U0003; U0005

== ENCOUNTER → 2022-06-03 11:52 | Outpatient (CLI) | payer MEDICARE, SELFPAY ==
--- NOTE | ~2022-06-03 | XR_ITS ---
XR chest 2V 06/03/2022 12:03 Indication: Chronic obstructive pulmonary disease. Procedure: 2 view chest Comparison: Comparison to multiple prior studies sequentially, with oldest reviewed study dated 08/09. Findings: Heart size normal. The lungs are hyperinflated which is consistent with, but not diagnostic of chronic obstructive pulmonary disease. Calcified granuloma left midlung. No acute osseous abnorma lity. No focal air space disease, pulmonary edema, pleural effusion or suspected pneumothorax. Impression: 1: No acute cardiopulmonary disease. Reviewed, dictated and finalized at location A. Impression: 1: No acute cardiopulmonary disease.
== END ==
PROVIDERS: PCP Clinical Nurse Specialist; Visit Provider Clinical Nurse Specialist
DX: J44.9 Chronic obstructive pulmonary disease, unspecified (principal); R05.9 Cough, unspecified
CPT/HCPCS: 71046

== ENCOUNTER → 2022-08-03 15:25 | Outpatient (CLI) | payer MEDICARE, SELFPAY ==
--- NOTE | ~2022-08-03 | XR_ITS ---
EXAMINATION: XR hand BI arthritis min 3V DATE: 08/03/2022 15:38 INDICATION: Polyarthritis, unspecified. TECHNIQUE: 3 views of right hand and 3 views of left hand on a total of 5 radiographs were obtained. COMPARISON: Right wrist radiographs 07/03/2015 FINDINGS: RIGHT HAND: There are degenerative subluxations at first interphalangeal joint, second distal interph alangeal joint, third proximal and distal interphalangeal joints, fourth distal interphalangeal joint , and fifth proximal interphalangeal joint. No fracture. There is mild osteoarthritis of first carpom etacarpal joint, moderate osteoarthritis of first metacarpophalangeal joint, and severe osteoarthriti s of all of the interphalangeal joints. LEFT HAND: There are degenerative subluxations of second-fourth proximal interphalangeal joints and f ifth distal interphalangeal joint. There is severe osteoarthritis of first carpometacarpal joint, mod erate osteoarthritis of first metacarpophalangeal joint, and mild osteoarthritis of fourth distal int erphalangeal joint, and severe osteoarthritis of all of the other interphalangeal joints. IMPRESSION: 1. Polyarticular osteoarthritis. Reviewed, dictated and finalized at location A.
== END ==
PROVIDERS: PCP Internal Medicine; Visit Provider Internal Medicine
DX: M13.0 Polyarthritis, unspecified (principal)
CPT/HCPCS: 73130

== ENCOUNTER → 2022-08-04 14:54 | Outpatient (CLI) | payer MEDICARE, SELFPAY ==
--- NOTE | ~2022-08-04 | MM_ITS ---
EXAMINATION: MM screening mammo implant BI HISTORY: Screening mammogram TECHNIQUE: Craniocaudal and mediolateral oblique 3-D tomosynthesis images with implant displacement a nd synthetic 2-D images were generated. Craniocaudal and mediolateral oblique views of the breasts wi thout implant displacement were obtained using full field digital mammography. CAD analysis was submi tted and interpreted. COMPARISON: 06/11/2021, 05/06/2020, or foraminal based 01/2019 bilateral implant screening mammogram exam inations BREAST PARENCHYMAL COMPOSITION: The breasts are almost entirely fatty. FINDINGS: Status post bilateral mastectomy and implant reconstruction. No fibroglandular stroma is no balaji. No suspicious mass, architectural distortion, malignant calcification, skin thickening or retrac tion is identified. There is no evidence of suspicious mass, calcification, or architectural distorti on to suggest malignancy in either breast. There has been no suspicious interval change. IMPRESSION: 1. No mammographic evidence of malignancy. 2. Recommend routine screening mammography in one year. BI-RADS Category 1: Negative Reviewed, dictated and finalized at location A.
== END ==
PROVIDERS: PCP Internal Medicine; Visit Provider Obstetrics & Gynecology Gynecology
DX: Z12.31 Encounter for screening mammogram for malignant neoplasm of breast (principal)
CPT/HCPCS: 77067

== ENCOUNTER 2022-09-06 12:43 | Outpatient (CLI) | payer MEDICARE, SELFPAY ==
[2022-09-06 18:52] LABS: Iron 64 ug/dL (37-170)
[2022-09-06 18:55] LABS: Hematocrit 37.6 % (37.0-47.0); Hemoglobin 11.9 g/dL (12.0-15.0); Mean Corpuscular HGB Conc 31.6 g/dl (32-36); Mean Corpuscular Hemoglobin 30.6 pg (26-34); Mean Corpuscular Volume 96.7 fl (80-100); Mean Platelet Volume 10.6 fl (7.4-10.4); Platelet Count Result 261 k/mm3 (150-375); Red Blood Count 3.89 M/mm3 (4.2-5.4); Red Cell Distribution Width 13.5 % (11.5-14.5); White Blood Count 5.9 K/mm3 (4.5-10.0)
[2022-09-06 19:01] LABS: Percent Iron Saturation 21 % (20-50)
[2022-09-06 19:13] LABS: Rheumatoid Factor < 8.6 IU/ML (<12)
[2022-09-06 19:15] LABS: Alanine Aminotransferase 18 U/L (6-35); Alkaline Phosphatase 139 U/L (38-126); Anion Gap 9 mmol/L (8-16); Aspartate Amino Transferase 26 U/L (14-36); Bilirubin,Total 0.3 mg/dL (0.2-1.3); Blood Urea Nitrogen 21 mg/dL (7-17); CRP < 0.5 mg/dL (<1.0); Calcium 9.9 mg/dL (8.4-10.2); Carbon Dioxide 29 mmol/L (22-30); Chloride 103 mmol/L (98-107); Estimated Glomerular Filt Rate 33; Glucose 103 mg/dL (65-110); Potassium 4.5 mmol/L (3.4-5.0); Sodium 141 mmol/L (137-145)
[2022-09-06 19:31] LABS: Hemoglobin A1C 6.2 % (<5.7)
[2022-09-06 19:32] LABS: Erythrocyte Sedimentation Rate 45 mm/hr (0-20)
[2022-09-06 19:49] LABS: Hepatitis C Virus Antibody Negative (Negative)
[2022-09-10 15:36] LABS: Anti Cyclic Citrullinated Pept <16 Units (<20)
== END 2022-09-06 12:44 | disposition home or self-care (01) ==
PROVIDERS: PCP Internal Medicine; Visit Provider Internal Medicine
DX: M13.0 Polyarthritis, unspecified (principal); E11.9 Type 2 diabetes mellitus without complications; N18.9 Chronic kidney disease, unspecified; D64.9 Anemia, unspecified
CPT/HCPCS: 36415; 80053; 82607; 82728; 82746; 83036; 83540; 83550; 85027; 85652; 86038; 86140; 86200; 86225; 86430; 86803

== ENCOUNTER 2022-10-05 09:26 | Outpatient (CLI) | payer MEDICARE, SELFPAY ==
--- NOTE | ~2022-10-05 | US_ITS ---
EXAMINATION: US renal BI DATE: 10/06/2022 08:50 SHAMPOO ASSISTANT INDICATION: Accelerated hypertension. TECHNIQUE: Sonographic imaging of the kidneys was performed with a 3.5 MHz transducer. Retroperitone al duplex sonogram of the renal arteries also obtained. FINDINGS: Renal echotexture is normal bilaterally without hydronephrosis, solid mass or stones. Right kidney measures 9.3 cm. Left kidney measures 8.9 cm. There are right renal cysts, largest measuring 1.5 cm. Additional note is made of a small round echogenic mass in the liver measuring 6 x 6 x 5 mm i n a subcapsular location. No focal flow abnormalities are seen in the renal arteries on color Doppler. The peak systolic veloc ity ranges of the right and left renal arteries and aorta are 116 cm per second, 72 cm per second, an d 76 cm per second, respectively. The velocities and renal to aortic ratios are within normal limits. IMPRESSION: 1. No Doppler evidence of renal artery stenosis. 2: Small round echogenic 6 mm mass of the liver, most likely benign hemangioma in the absence of know n malignancy. Reviewed, dictated and finalized at location A. POO ASSISTANT IMPRESSION: 1. No Doppler evidence of renal artery stenosis. 2: Small round echogenic 6 mm mass of the liver, most likely benign hemangioma in the absence of known malignancy.
--- NOTE | ~2022-10-05 | US_ITS ---
EXAMINATION: US retroperitoneal duplex ltd DATE: 10/05/2022 10:57 INDICATION: Hypertension. Chronic kidney disease stage IIIB. TECHNIQUE: Multiple grayscale, color Doppler, and pulsed Doppler images of the kidneys and renal alyse charles were obtained. COMPARISON: None. FINDINGS: The aorta peak systolic velocity is 76 cm/s. The right renal artery peak systolic velocity is 116 cm/ s in the proximal segment, 71 cm/s in the mid segment, and 95 cm/s in the distal segment. The left re nal artery peak systolic velocity is 72 cm/s in the proximal segment, 57 cm/s in the mid segment, and 61 cm/s in the distal segment. IMPRESSION: 1. No Doppler evidence of renal artery stenosis. Reviewed, dictated and finalized at location A. 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
[2022-10-05 11:31] LABS: Appearance Urine Clear (Clear); Bilirubin Urine Negative (Negative); Blood Urine Negative (Negative); Color Urine Yellow (Yellow); Glucose Urine UA Negative (Negative); Ketones Urine Negative (Negative); Leukocyte Esterase Ur Negative LEU/UL (NEGATIVE); Nitrate Urine Negative (Negative); Protein Urine Negative (Negative); Specific Grav Ur 1.015 (1.001-1.035); Urobilinogen Urine 0.2 mg/dL (<2.0)
[2022-10-05 11:34] LABS: Add Urine Microscopic? NO
[2022-10-08 22:48] LABS: Albumin 3.7 g/dL (3.8-4.8); Alpha 1 Globulin 0.3 g/dL (0.2-0.3); Alpha 2 Globulin 0.9 g/dL (0.5-0.9); Beta 1 Globulin 0.4 g/dL (0.4-0.6); Gamma Globulin 0.9 g/dL (0.8-1.7); Protein, Total 6.6 g/dL (6.1-8.1)
[2022-10-10 00:07] LABS: Creatinine, Random Urine 58 mg/dL (20-275); Total Protein/Creatinine Ratio 103 mg/g creat (24-184)
== END 2022-10-05 09:27 | disposition home or self-care (01) ==
LOC: ANHIMG 09:43
PROVIDERS: PCP Internal Medicine; Visit Provider Internal Medicine
DX: N18.32 Chronic kidney disease, stage 3b (principal); E11.22 Type 2 diabetes mellitus with diabetic chronic kidney disease; Z79.4 Long term (current) use of insulin; R16.0 Hepatomegaly, not elsewhere classified
CPT/HCPCS: 36415; 76775; 81003; 82570; 84155; 84156; 84165; 84166; 93976

== ENCOUNTER 2023-01-25 13:51 | Emergency (ER) | payer MEDICARE, SELFPAY ==
--- NOTE | 2023-01-25 13:55 | ED.URI ---
HPI - URI/Sore Throat General Chief Complaint: Upper Respiratory Infection Stated Complaint: congestion Source: patient and RN notes reviewed History of Present Illness HPI Narrative: 10 year male presents to urgent care stating she thinks she has a sinus infection. Patient reports continuous congestion, facial pressure, and runny nose for the last 10 days. Patient denies any ear pain vomiting, chest pain, shortness of breath, or abdominal pain. Patient has been taking [id number] cold medications with minimal relief. Some parts of this dictation were generated by voice recognition software and may contain typographical and/or grammatical inaccuracies. Related Data Home Medications Medication Instructions Recorded Confirmed calcium acetate(phosphat bind) 667 667 mg PO DAILY 11/12/19 01/25/23 mg capsule cholecalciferol (vitamin D3) 75 3,000 unit PO DAILY 11/12/19 01/25/23 mcg (3,000 unit) tablet magnesium 30 mg tablet 30 mg PO DAILY 11/12/19 01/25/23 loratadine 10 mg tablet (Claritin) 10 mg PO DAILY 05/19/21 01/25/23 quetiapine 25 mg tablet (Seroquel) 25 mg PO QHS 08/03/22 01/25/23 umeclidinium 62.5 mcg/actuation 1 inh inhalation Q24H 12/14/22 01/25/23 blister powder for inhalation (Incruse Ellipta) eszopiclone 2 mg tablet 2 mg PO HS 01/25/23 01/25/23 tiotropium bromide 2.5 2 inh inhalation DAILY 01/25/23 01/25/23 mcg/actuation mist for inhalation (Spiriva Respimat) Allergies Allergy/AdvReac Type Severity Reaction Status Date / Time adhesive Allergy Unknown Itching Verified 01/25/23 13:57 Sulfa (Sulfonamide Allergy Unknown facial Verified 01/25/23 13:57 Antibiotics) swelling Review of Systems Review of Systems: Pertinent positives and pertinent negatives per HPI. [facility] Past Medical History Medical History Abnormal EKG Age related osteoporosis Anemia Bipolar 1 disorder Cataract Chronic renal failure COPD (chronic obstructive pulmonary disease) Fibrocystic breast disease GERD (gastroesophageal reflux disease) Graves disease Hyperglycemia Hyperlipidemia Hyperthyroidism Migraine Osteoarthritis Osteopenia of both hips Polyarthritis Pulmonary emphysema Spinal stenosis Stroke Type 2 diabetes mellitus Surgical History Surgical History H/O breast surgery 2 Reconstructive H/O mastectomy Double 1975 H/O neck surgery History of hip replacement Right 06/2022 Family History Family History Father Family history of osteoarthritis Diabetes mellitus Heart disease Sibling Family history of malignant melanoma, Onset Age: 60 Patient's sister is Mother Family history of malignant neoplasm of breast in first degree relative, Onset Age: 56 Patient's mother is Grandparent No problems noted. Other Depression Family history of alcoholism Family history of arthritis Family history of cardiovascular disease Family history of hearing loss Family history of obesity Social History Social History Smoking packs per day: 1 Smoking cigarettes per day: 20.0 Years smoked: 20 Smoking pack-years: 20.00 Smoking status: Former smoker Smoking end date: 11/07/02 Alcohol intake: current Alcohol use details: occasionally Substance use: never Substance use type: does not use Lack of Transportation: No Lack of Food: Never True Current Housing: I Have Housing Concerned About Future Housing: No Difficulty Paying Gas/Electric Bills: No Difficulty Paying for Meds: No Currently Unemployed: No Education: Master's Degree or Higher Difficulty w/ Childcare or Family Care: No Gender identity (if verbalized by the patient): Female Comments At the time of my signature, I reviewed and ag
[2023-01-25 14:00] VITALS: BP 150/104; PULSE 72; RESP 18; TEMP 37.2; O2SAT 95
== END 2023-01-25 14:09 | disposition home or self-care (01) ==
PROVIDERS: Emergency Provider Nurse Practitioner Family; PCP Internal Medicine
DX: J01.90 Acute sinusitis, unspecified (principal); Z87.891 Personal history of nicotine dependence; J44.9 Chronic obstructive pulmonary disease, unspecified; K21.9 Gastro-esophageal reflux disease without esophagitis; E78.5 Hyperlipidemia, unspecified; E05.90 Thyrotoxicosis, unspecified without thyrotoxic crisis or storm; M19.90 Unspecified osteoarthritis, unspecified site; M85.88 Other specified disorders of bone density and structure, other site; E11.9 Type 2 diabetes mellitus without complications; Z86.73 Personal history of transient ischemic attack (TIA), and cerebral infarction without residual deficits; Z90.13 Acquired absence of bilateral breasts and nipples; Z96.641 Presence of right artificial hip joint; E05.00 Thyrotoxicosis with diffuse goiter without thyrotoxic crisis or storm; F31.9 Bipolar disorder, unspecified
CPT/HCPCS: 99213; G0463

== ENCOUNTER 2023-04-07 10:12 | Outpatient (CLI) | payer MEDICARE, SELFPAY ==
--- NOTE | 2023-04-07 11:00 | NEURO_ITS ---
Impression: # Complains of increasing hand weakness and numbness of hands. History of significant arthritis. # Bilateral Carpal Tunnel Syndrome, sensory more than motor. # Mild right ulnar neuropathy. # Needle/EMG exam not requested. Nerve Conduction Studies Anti Sensory Summary Table Stim Site NR Peak (ms) P-T Amp (?V) Site1 Site2 Delta-P (ms) Dist (cm) Ibll (m/s) Left Median Anti Sensory (2-3nd Digit) NO RESPONSE Wrist 5.0 17.1 Wrist 2-3nd Digit 5.0 14.0 28 Wrist NR Wrist 2-3nd Digit 5.0 14.0 28 Right Median Anti Sensory (2-3nd Digit) Wrist 6.7 27.2 Wrist 2-3nd Digit 6.7 14.0 21 Wrist 5.8 29.4 Wrist 2-3nd Digit 6.7 14.0 21 Left Radial Anti Sensory (Base 1st Digit) Wrist 2.0 15.8 Wrist Base 1st Digit 2.0 0.0 Right Radial Anti Sensory (Base 1st Digit) Wrist 2.4 25.1 Wrist Base 1st Digit 2.4 0.0 Left Ulnar Anti Sensory (5th Digit) Wrist 2.5 28.9 Wrist 5th Digit 2.5 14.0 56 Right Ulnar Anti Sensory (5th Digit) Wrist 2.6 13.9 Wrist 5th Digit 2.6 14.0 54 Motor Summary Table Stim Site NR Onset (ms) O-P Amp (mV) Site1 Site2 Delta-0 (ms) Dist (cm) Bill (m/s) Left Median Motor (Abd Poll Brev) Wrist 3.9 1.1 Elbow Wrist 5.2 28.0 54 Elbow 9.1 1.1 Right Median Motor (Abd Poll Brev) Wrist 3.8 1.5 Elbow Wrist 5.7 28.0 49 Elbow 9.5 3.9 Left Ulnar Motor (Abd Dig Minimi) Wrist 2.3 7.8 A Elbow Wrist 5.7 29.0 51 A Elbow 8.0 6.7 Right Ulnar Motor (Abd Dig Minimi) Wrist 2.5 5.8 A Elbow Wrist 6.0 28.0 47 A Elbow 8.5 3.6 B Elbow Wrist 4.5 20.0 44 B Elbow 7.0 4.0 F Wave Studies NR F-Lat (ms) L-R F-Lat (ms) Left Median (Mrkrs) (Abd Poll Brev) 28.00 0.00 Right Median (Mrkrs) (Abd Poll Brev) 28.00 0.00 Left Ulnar (Mrkrs) (Abd Dig Min) 28.29 0.54 Right Ulnar (Mrkrs) (Abd Dig Min) 27.74 0.54 MTDD
== END 2023-04-07 10:13 | disposition home or self-care (01) ==
LOC: ANHNEURO 10:12
PROVIDERS: PCP Internal Medicine; Visit Provider Plastic Surgery
DX: R20.2 Paresthesia of skin (principal); G56.21 Lesion of ulnar nerve, right upper limb; G56.03 Carpal tunnel syndrome, bilateral upper limbs
CPT/HCPCS: 95911

== ENCOUNTER 2023-04-13 09:32 | Outpatient (CLI) | payer MEDICARE, SELFPAY ==
[2023-04-13 19:27] LABS: Basophils Absolute Auto 0.1 K/mm3 (0.0-0.1); Basophils Percent Auto 1.3 % (0.2-1.2); Eosinophils Absolute Auto 0.3 K/mm3 (0-0.3); Eosinophils Percent Auto 6.8 % (0-4.4); Hematocrit 40.8 % (37.0-47.0); Hemoglobin 12.8 g/dL (12.0-15.0); Immature Granulocyte Absolute 0.01 K/mm3 (0.00-0.031); Immature Granulocyte Percent A 0.2 % (0-0.5); Lymphocytes Absolute Auto 1.19 K/mm3 (0.9-3.2); Lymphocytes Percent Auto 25.4 % (18.3-44.2); Mean Corpuscular HGB Conc 31.4 g/dl (32-36); Mean Corpuscular Hemoglobin 30.8 pg (26-34); Mean Corpuscular Volume 98.3 fl (80-100); Mean Platelet Volume 10.6 fl (7.4-10.4); Monocytes Absolute Auto 0.4 K/mm3 (0.1-0.6); Monocytes Percent Auto 7.9 % (2.6-8.5); Neutrophils Absolute Auto 2.7 K/mm3 (1.3-6.7); Neutrophils Percent Auto 58.4 % (45.5-73.1); Platelet Count Result 263 k/mm3 (150-375); Red Blood Count 4.15 M/mm3 (4.2-5.4); Red Cell Distribution Width 13.9 % (11.5-14.5); White Blood Count 4.7 K/mm3 (4.5-10.0)
[2023-04-13 21:09] LABS: Alanine Aminotransferase 16 U/L (6-35); Alkaline Phosphatase 131 U/L (38-126); Anion Gap 4 mmol/L (8-16); Aspartate Amino Transferase 25 U/L (14-36); Bilirubin,Total 0.5 mg/dL (0.2-1.3); Blood Urea Nitrogen 21 mg/dL (7-17); Calcium 9.3 mg/dL (8.4-10.2); Carbon Dioxide 32 mmol/L (22-30); Chloride 106 mmol/L (98-107); Estimated Glomerular Filt Rate 43; Glucose 94 mg/dL (65-110); Magnesium 2.1 mg/dL (1.6-2.3); Potassium 4.8 mmol/L (3.4-5.0); Sodium 142 mmol/L (137-145)
[2023-04-13 21:31] LABS: Vitamin D 25 Hydroxy 75.2 ng/mL
[2023-04-13 21:32] LABS: Thyroid Stimulating Hormone 0.253 uIU/mL (0.465-4.680)
[2023-04-13 22:04] LABS: Hemoglobin A1C 5.9 % (<5.7)
== END 2023-04-13 09:33 | disposition home or self-care (01) ==
LOC: ANHGOSHLAB 09:33
PROVIDERS: PCP Internal Medicine; Visit Provider Internal Medicine
DX: E53.8 Deficiency of other specified B group vitamins (principal); D64.9 Anemia, unspecified; M13.0 Polyarthritis, unspecified; E05.00 Thyrotoxicosis with diffuse goiter without thyrotoxic crisis or storm; E11.9 Type 2 diabetes mellitus without complications; N18.9 Chronic kidney disease, unspecified; R79.89 Other specified abnormal findings of blood chemistry; E83.42 Hypomagnesemia
CPT/HCPCS: 36415; 80053; 82306; 83036; 83735; 84443; 85025

== ENCOUNTER 2023-04-14 13:49 | Outpatient (NON) | payer MEDICARE, SELFPAY ==
[2023-04-15 12:25] LABS: Creatinine Urine 81.7 mg/dL
[2023-04-15 12:28] LABS: MALB Creatinine Ratio 15.1 mg/g (0-30); Microalbumin Urine Random 12.3 mg/L (0-16.7)
== END 2023-04-14 13:50 | disposition home or self-care (01) ==
LOC: ANHGOSHLAB 13:50
PROVIDERS: PCP Internal Medicine; Visit Provider Clinical Nurse Specialist
DX: E11.22 Type 2 diabetes mellitus with diabetic chronic kidney disease (principal); N18.32 Chronic kidney disease, stage 3b
CPT/HCPCS: 82043

== ENCOUNTER → 2023-08-11 10:09 | Outpatient (CLI) | payer MEDICARE, SELFPAY ==
--- NOTE | ~2023-08-11 | CT_ITS ---
EXAMINATION: CT sinus wo con DATE: 08/11/2023 10:22 INDICATION: Chronic sinusitis TECHNIQUE: Computed tomography (CT) of the paranasal sinuses was performed without contrast. Iterativ e reconstruction technique was employed. Exam dose: 366.60 mGy-cm total exam DLP. COMPARISON: 10/08/2009 CT sinuses FINDINGS: There is mehul bullosa of both middle nasal turbinates. The nasal turbinates are moderatel y prominent but symmetric in size. The ostiomeatal units are patent bilaterally. The paranasal sinuses are normally developed and aerated. There are occasional opacified right mastoi d air cells but the mastoid air cells otherwise appear normally developed and aerated. There is some chronic soft tissue density along the posterior aspect of the petrous temporal bones, l arger on the right compared to left, apparently stable since 10/08/2009 and not likely of any clinical significance. 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 Reviewed, dictated and finalized at location L.
== END ==
PROVIDERS: PCP Internal Medicine; Visit Provider Otolaryngology
DX: J32.9 Chronic sinusitis, unspecified (principal)
CPT/HCPCS: 70486

== ENCOUNTER 2023-09-09 13:38 | Emergency (ER) | payer MEDICARE, SELFPAY ==
--- NOTE | ~2023-09-09 | XR_ITS ---
XR chest 2V DATE: 09/09/2023 15:44 INDICATION: Cough TECHNIQUE: 2 views COMPARISON: 05/26/2022 2 view chest FINDINGS: Prominent bilateral hyperinflation and flattening the diaphragm and increased retrosternal airspace consistent with COPD. No pulmonary infiltrate or consolidation, pleural effusion or pulmonary vascular congestion or pneumo thorax is detected. Heart size is within normal range. Is aortic calcification and unfolding. No hilar or mediastinal enl argement. Diffuse osteopenia. Status post anterior and interbody mid cervical spine surgical fusion. Osteoarthritic change at the glenohumeral joints. Levoscoliosis and degenerative spurring of the thor acic spine. IMPRESSION: COPD Aortic atherosclerosis No active pulmonary disease Reviewed, dictated and finalized at location B.
[2023-09-09 14:49] VITALS: BP 165/88; PULSE 72; RESP 16; TEMP 36.7; O2SAT 95
--- NOTE | 2023-09-09 15:25 | ED.URI ---
HPI - URI/Sore Throat General Chief Complaint: Upper Respiratory Infection Stated Complaint: Sinus Infection Time Seen by Provider: 09/09/23 15:26 Source: patient and RN notes reviewed Mode of arrival: ambulatory Limitations: no limitations History of Present Illness HPI Narrative: 82-year-old female with hx copd, DM, HTN presented for complaint of cough for over one week with sinus congestion and drainage. Since onset, has taken steroid taper by pcp, then was seen by ENT for the same. Taking Flonase and doxycycline per ENT on 09/01/2023. States the doxy makes her bloated so she decreased it to daily; Reports no improvement. Denies sob, wheezing, n/v/d/f/c. MD elicited complaint: cough Related Data Home Medications Medication Instructions Recorded Confirmed calcium acetate(phosphat bind) 667 667 mg PO DAILY 11/12/19 09/09/23 mg capsule cholecalciferol (vitamin D3) 75 3,000 unit PO DAILY 11/12/19 09/09/23 mcg (3,000 unit) tablet magnesium 30 mg tablet 30 mg PO DAILY 11/12/19 09/09/23 quetiapine 25 mg tablet (Seroquel) 25 mg PO QHS 08/03/22 09/09/23 eszopiclone 2 mg tablet 2 mg PO HS 01/25/23 09/09/23 Allergies Allergy/AdvReac Type Severity Reaction Status Date / Time adhesive Allergy Unknown Itching Verified 09/09/23 14:53 Sulfa (Sulfonamide Allergy Unknown facial Verified 09/09/23 14:53 Antibiotics) swelling Review of Systems Review of Systems: CONSTITUTIONAL: Denies malaise, chills, sweats, fever EYES: Denies visual changes, redness, or discharge ENT: Reports rhinorrhea, congestion, denies sinus pain, otalgia, sore throat CARDIOVASCULAR: Denies chest pain, palpitations, edema RESPIRATORY: Reports cough, post nasal drainage. Denies dyspnea GASTROINTESTINAL: Denies abdominal pain, nausea, vomiting, diarrhea SKIN: Denies rash or itching MUSCULOSKELETAL: Denies myalgia NEUROLOGIC: Denies headache All systems reviewed & are unremarkable except as noted in HPI and below PMFSH Past Medical History Medical History Abnormal EKG Age related osteoporosis Anemia Bipolar 1 disorder Cataract Chronic renal failure COPD (chronic obstructive pulmonary disease) Fibrocystic breast disease GERD (gastroesophageal reflux disease) Graves disease Hyperglycemia Hyperlipidemia Hyperthyroidism Migraine Osteoarthritis Osteopenia of both hips Polyarthritis Pulmonary emphysema Spinal stenosis Stroke Type 2 diabetes mellitus Surgical History Surgical History H/O breast surgery 2 Reconstructive H/O mastectomy Double 1975 H/O neck surgery History of hip replacement Right 06/2022 Family History Family History Father Family history of osteoarthritis Diabetes mellitus Heart disease Sibling Family history of malignant melanoma, Onset Age: 60 Patient's sister is Mother Family history of malignant neoplasm of breast in first degree relative, Onset Age: 56 Patient's mother is Grandparent No problems noted. Other Depression Family history of alcoholism Family history of arthritis Family history of cardiovascular disease Family history of hearing loss Family history of obesity Social History Social History Smoking packs per day: 1 Smoking cigarettes per day: 20.0 Years smoked: 20 Smoking pack-years: 20.00 Smoking status: Former smoker Smoking end date: 11/07/02 Alcohol intake: current Alcohol use details: occasionally Substance use: never Substance use type: does not use Lack of Transportation: No Lack of Food: Never True Current Housing: I Have Housing Concerned About Future Housing: No Difficulty Paying Gas/Electric Bills: No Difficulty Paying for Meds: No Currently Unemployed: No Education
== END 2023-09-09 16:25 | disposition home or self-care (01) ==
PROVIDERS: Emergency Provider Nurse Practitioner Family; PCP Internal Medicine
DX: J40 Bronchitis, not specified as acute or chronic (principal); J44.9 Chronic obstructive pulmonary disease, unspecified; E11.9 Type 2 diabetes mellitus without complications; I10 Essential (primary) hypertension; M81.0 Age-related osteoporosis without current pathological fracture; K21.9 Gastro-esophageal reflux disease without esophagitis; E05.00 Thyrotoxicosis with diffuse goiter without thyrotoxic crisis or storm; E78.5 Hyperlipidemia, unspecified; E05.90 Thyrotoxicosis, unspecified without thyrotoxic crisis or storm; M19.90 Unspecified osteoarthritis, unspecified site; M85.88 Other specified disorders of bone density and structure, other site; M48.00 Spinal stenosis, site unspecified; Z86.73 Personal history of transient ischemic attack (TIA), and cerebral infarction without residual deficits; Z90.13 Acquired absence of bilateral breasts and nipples; Z96.641 Presence of right artificial hip joint; Z87.891 Personal history of nicotine dependence; F31.9 Bipolar disorder, unspecified
CPT/HCPCS: 71046; 99213; G0463

== ENCOUNTER 2023-10-30 13:34 | Emergency (ER) | payer MEDICARE, SELFPAY ==
--- NOTE | ~2023-10-30 | XR_ITS ---
XR knee RT min 4V 10/30/2023 14:08 Indication: Right knee pain and swelling Procedure: 4 views right knee Comparison: No prior studies for comparison. Findings: Osteopenia. Mild osteoarthritis. No fracture or traumatic malalignment. There is atheroscle rosis. No significant joint effusion. Impression: 1: No acute fracture. Reviewed, dictated and finalized at location A. ING TABLE OPERATOR Impression: 1: No acute fracture.
[2023-10-30 13:33] VITALS: BP 168/72; PULSE 66; RESP 16; TEMP 36.2; O2SAT 99
--- NOTE | 2023-10-30 13:56 | ED.LOWEXIN ---
HPI - Extremity Injury (Lower) General Chief Complaint: Extremity Injury, Lower Stated Complaint: KNEE PAIN Time Seen by Provider: 10/30/23 13:55 Source: patient and family Mode of arrival: ambulatory Limitations: no limitations History of Present Illness HPI Narrative: Patient is a pleasant 82-year-old female with a past medical history is noted below who presents emergency department today by private vehicle with family member for evaluation of pain and swelling to the right knee that started yesterday. Patient denies any known injury or fall. She does have a boot in place to the left foot that she has been wearing for approximately 4-6 weeks due to an ankle injury. Denies any redness or warmth to the right knee or lower leg. Denies numbness or tingling to the right lower extremity. She states that there is pain with walking. Denies any history of PE or DVT. denies fever or chills. Related Data Home Medications Medication Instructions Recorded Confirmed calcium acetate(phosphat bind) 667 667 mg PO DAILY 11/12/19 09/19/23 mg capsule cholecalciferol (vitamin D3) 75 3,000 unit PO DAILY 11/12/19 09/19/23 mcg (3,000 unit) tablet magnesium 30 mg tablet 30 mg PO DAILY 11/12/19 09/19/23 quetiapine 25 mg tablet (Seroquel) 25 mg PO QHS 08/03/22 09/19/23 eszopiclone 2 mg tablet 2 mg PO HS 01/25/23 09/19/23 Allergies Allergy/AdvReac Type Severity Reaction Status Date / Time adhesive Allergy Unknown Itching Verified 09/19/23 15:21 Sulfa (Sulfonamide Allergy Unknown facial Verified 09/19/23 15:21 Antibiotics) swelling Review of Systems Review of Systems: CONSTITUTIONAL: Denies fever, chills, or sweats. CARDIOVASCULAR: Denies chest pain, palpitations, or edema. RESPIRATORY: Denies cough or dyspnea. GENITOURINARY: Denies dysuria or hematuria. SKIN: Denies rash or itching. MUSCULOSKELETAL: +right knee pain and swelling. NEUROLOGIC: Denies headache, numbness, or weakness. PSYCHIATRIC: Denies anxiety or depression. All systems reviewed & are unremarkable except as noted in HPI and below PMFSH Past Medical History Medical History Abnormal EKG Age related osteoporosis Anemia Bipolar 1 disorder Cataract Chronic renal failure COPD (chronic obstructive pulmonary disease) Fibrocystic breast disease GERD (gastroesophageal reflux disease) Graves disease Hyperglycemia Hyperlipidemia Hyperthyroidism Migraine Osteoarthritis Osteopenia of both hips Polyarthritis Pulmonary emphysema Spinal stenosis Stroke Type 2 diabetes mellitus Surgical History Surgical History H/O breast surgery 2 Reconstructive H/O mastectomy Double 1975 H/O neck surgery History of hip replacement Right 06/2022 Family History Family History Father Family history of osteoarthritis Diabetes mellitus Heart disease Sibling Family history of malignant melanoma, Onset Age: 60 Patient's sister is Mother Family history of malignant neoplasm of breast in first degree relative, Onset Age: 56 Patient's mother is Grandparent No problems noted. Other Depression Family history of alcoholism Family history of arthritis Family history of cardiovascular disease Family history of hearing loss Family history of obesity Social History Social History Smoking packs per day: 1 Smoking cigarettes per day: 20.0 Years smoked: 20 Smoking pack-years: 20.00 Smoking status: Former smoker Smoking end date: 11/07/02 Alcohol intake: current Alcohol use details: occasionally Substance use: never Substance use type: does not use Lack of Transportation: No Lack of Food: Never True Current Housing: I Have Housing Concerned About Future Housing: No Diffi
[2023-10-30] MEDS: KETOROLAC 30 MG/ML VIAL (*BKC) 15 MG IM (14:30)
[2023-10-30] MEDS: HYDROcodone/acetaminophen (*CRX) 5-325 MG TABLET 1 TAB PO (15:52)
[2023-10-30 15:53] VITALS: BP 157/87; PULSE 64; RESP 16; TEMP 36.3; O2SAT 98
== END 2023-10-30 15:56 | disposition home or self-care (01) ==
PROVIDERS: Emergency Provider Nurse Practitioner; PCP Internal Medicine
DX: M17.11 Unilateral primary osteoarthritis, right knee (principal); M85.861 Other specified disorders of bone density and structure, right lower leg; F31.9 Bipolar disorder, unspecified; E05.00 Thyrotoxicosis with diffuse goiter without thyrotoxic crisis or storm; E78.5 Hyperlipidemia, unspecified; E05.90 Thyrotoxicosis, unspecified without thyrotoxic crisis or storm; Z96.641 Presence of right artificial hip joint; Z87.891 Personal history of nicotine dependence
CPT/HCPCS: 73564; 96372; 99283; A9270; J1885

== ENCOUNTER 2023-12-16 10:47 | Outpatient (CLI) | payer MEDICARE, SELFPAY ==
[2023-12-16 12:13] LABS: Basophils Percent Auto 0.6 % (0.2-1.2); Eosinophils Absolute Auto 0.2 K/mm3 (0-0.3); Eosinophils Percent Auto 4.9 % (0-4.4); Hematocrit 39.9 % (37.0-47.0); Hemoglobin 12.7 g/dL (12.0-15.0); Immature Granulocyte Absolute 0.01 K/mm3 (0.00-0.031); Immature Granulocyte Percent A 0.2 % (0-0.5); Lymphocytes Absolute Auto 1.14 K/mm3 (0.9-3.2); Lymphocytes Percent Auto 23.3 % (18.3-44.2); Mean Corpuscular HGB Conc 31.8 g/dl (32-36); Mean Corpuscular Hemoglobin 31.1 pg (26-34); Mean Corpuscular Volume 97.8 fl (80-100); Mean Platelet Volume 10.5 fl (7.4-10.4); Monocytes Absolute Auto 0.5 K/mm3 (0.1-0.6); Platelet Count Result 218 k/mm3 (150-375); Red Blood Count 4.08 M/mm3 (4.2-5.4); White Blood Count 4.9 K/mm3 (4.5-10.0)
[2023-12-16 12:28] LABS: Alanine Aminotransferase 10 U/L (6-35); Albumin Level 4.1 g/dL (3.5-5.1); Alkaline Phosphatase 107 U/L (38-126); Anion Gap 5 mmol/L (8-16); Aspartate Amino Transferase 32 U/L (14-36); Bilirubin,Total 0.5 mg/dL (0.2-1.3); Blood Urea Nitrogen 23 mg/dL (7-17); Calcium 9.9 mg/dL (8.4-10.2); Carbon Dioxide 33 mmol/L (22-30); Chloride 106 mmol/L (98-107); Estimated Glomerular Filt Rate 39; Glucose 85 mg/dL (65-110); Potassium 4.7 mmol/L (3.4-5.0); Sodium 144 mmol/L (137-145)
[2023-12-16 12:48] LABS: Thyroid Stimulating Hormone 0.776 uIU/mL (0.465-4.680)
[2023-12-16 12:58] LABS: Hemoglobin A1C 6.4 % (<5.7)
[2023-12-16 18:48] LABS: Appearance Urine Clear (Clear); Bilirubin Urine Negative (Negative); Blood Urine Negative (Negative); Color Urine Yellow (Yellow); Glucose Urine UA Negative (Negative); Ketones Urine Negative (Negative); Leukocyte Esterase Ur Negative LEU/UL (Negative); Nitrate Urine Negative (Negative); Protein Urine Negative (Negative); Specific Grav Ur 1.018 (1.001-1.035); Urobilinogen Urine 0.2 mg/dL (<2.0); pH Urine 5.5 (5.0-9.0)
[2023-12-16 18:51] LABS: Add Urine Microscopic? NO
== END 2023-12-16 10:48 | disposition home or self-care (01) ==
LOC: ANHGOSHLAB 10:49
PROVIDERS: PCP Internal Medicine; Visit Provider Nurse Practitioner
DX: E05.90 Thyrotoxicosis, unspecified without thyrotoxic crisis or storm (principal); E11.22 Type 2 diabetes mellitus with diabetic chronic kidney disease; N18.9 Chronic kidney disease, unspecified
CPT/HCPCS: 36415; 80053; 81003; 83036; 84443; 85025

== ENCOUNTER 2024-01-19 10:14 | Outpatient (CLI) | payer MEDICARE, SELFPAY ==
[2024-01-19 12:58] LABS: Albumin Level 4.2 g/dL (3.5-5.1); Anion Gap 5 mmol/L (8-16); Blood Urea Nitrogen 20 mg/dL (7-17); Carbon Dioxide 30 mmol/L (22-30); Chloride 106 mmol/L (98-107); Estimated Glomerular Filt Rate 33; Glucose 98 mg/dL (65-110); Phosphorus 4.1 mg/dL (2.5-4.5); Potassium 4.2 mmol/L (3.4-5.0); Sodium 141 mmol/L (137-145)
[2024-01-19 13:07] LABS: Creatinine Urine 136.5 mg/dL; Total Protein Urine Random 10 mg/dL; Ur Ttl Prot Creatinine Ratio 0.07 mg/mg (0-0.20)
[2024-01-19 13:14] LABS: Complement C3 116 mg/dL (88-165)
[2024-01-22 13:54] LABS: Alpha 1 Globulin 0.3 g/dL (0.2-0.3); Alpha 2 Globulin 0.9 g/dL (0.5-0.9); Beta 1 Globulin 0.5 g/dL (0.4-0.6); Gamma Globulin 0.8 g/dL (0.8-1.7); Protein, Total 6.9 g/dL (6.1-8.1)
[2024-01-24 20:53] LABS: ANA Titer 1:40 (Negative); Anti Nuclear Antibody Pattern Nuclear, Nucleolar
[2024-01-24 21:59] LABS: ANCA Screen C-ANCA POS (Negative)
[2024-01-24 22:13] LABS: C-ANCA Titer Reflex Chg Test YES
[2024-01-25 00:56] LABS: Anti Glomerular Basement Memb <1.0 AI (<1.0)
[2024-01-29 21:19] LABS: Creatinine, Random Urine 128 mg/dL (20-275); Total Protein/Creatinine Ratio 94 mg/g creat (24-184)
== END 2024-01-19 10:15 | disposition home or self-care (01) ==
PROVIDERS: PCP Internal Medicine; Visit Provider Internal Medicine Nephrology
DX: I12.9 Hypertensive chronic kidney disease with stage 1 through stage 4 chronic kidney disease, or unspecified chronic kidney disease (principal); N18.32 Chronic kidney disease, stage 3b
CPT/HCPCS: 36415; 80069; 82570; 83520; 84155; 84156; 84165; 84166; 86036; 86038; 86039; 86160; 86225

== ENCOUNTER 2024-01-19 10:35 | Outpatient (CLI) | payer MEDICARE, SELFPAY ==
--- NOTE | ~2024-01-19 | US_ITS ---
EXAMINATION: US renal BI DATE: 01/19/2024 11:09 INDICATION: Stage III chronic kidney disease TECHNIQUE: Multiple ultrasound grayscale images of the kidneys were obtained. COMPARISON: None. FINDINGS: The right kidney measures 8.5 x 3.4 x 3.6 cm. The left kidney measures 9.0 x 3.8 x 5.1 cm. There is b ilateral diffuse increased renal cortical atrophy consistent with medical renal disease. There is mil d cortical thinning at both kidneys consistent with likely age-related diffuse atrophy. 1.0 cm anecho ic right renal cyst. There is no hydronephrosis in either kidney. No stones identified. The bladder is partially decompressed which limits evaluation. Anteverted uterus with 4 mm thick endometrial comp brooklynn which remains within normal limits. IMPRESSION: 1. Mild cortical thinning at both kidneys with diffuse increased echogenicity consistent with medica l renal disease. No hydronephrosis. Reviewed, dictated and finalized at location L. IMPRESSION: 1. Mild cortical thinning at both kidneys with diffuse increased echogenicity consistent with medical renal disease. No hydronephrosis.
== END 2024-01-19 10:36 ==
LOC: GOSHIMG 10:37
PROVIDERS: PCP Internal Medicine Nephrology; Visit Provider Internal Medicine Nephrology
DX: I12.9 Hypertensive chronic kidney disease with stage 1 through stage 4 chronic kidney disease, or unspecified chronic kidney disease (principal); N18.32 Chronic kidney disease, stage 3b
CPT/HCPCS: 76775

== ENCOUNTER 2024-01-19 10:38 | Outpatient (CLI) | payer MEDICARE, SELFPAY ==
--- NOTE | ~2024-01-19 | MR_ITS ---
EXAMINATION: MR brain/brain stem wo/w con DATE: 01/19/2024 11:51 INDICATION: Cerebrospinal fluid leak, unspecified. TECHNIQUE: Magnetic resonance imaging (MRI) of the brain and brainstem was performed without and with 10 mL MultiHance intravenous contrast. COMPARISON: Brain MRI 08/29/2013 FINDINGS: There are scattered areas of nonspecific increased T2-weighted signal intensity in the cere bral white matter. There is no intracranial hemorrhage, acute infarction, or abnormal intracranial ma ss lesion. The ventricles are normal in size. The paranasal sinuses are clear. There are likely gomez es of ocular lens replacement surgeries. There is a small right mastoid effusion. IMPRESSION: 1. Worsened moderate nonspecific cerebral white matter disease, which likely represents chronic small vessel ischemic disease. Reviewed, dictated and finalized at location A. IMPRESSION: 1. Worsened moderate nonspecific cerebral white matter disease, which likely re presents chronic small vessel ischemic disease.
== END 2024-01-19 10:39 ==
LOC: GOSHIMG 10:39
PROVIDERS: PCP Otolaryngology; Visit Provider Otolaryngology
DX: G96.00 Cerebrospinal fluid leak, unspecified (principal); H72.01 Central perforation of tympanic membrane, right ear; J34.89 Other specified disorders of nose and nasal sinuses; R90.82 White matter disease, unspecified
CPT/HCPCS: 70553; A9577

== ENCOUNTER 2024-03-21 12:36 | Outpatient (CLI) | payer MEDICARE, SELFPAY ==
--- NOTE | ~2024-03-21 | XR_ITS ---
Clinical Indication: COPD PA and lateral views of the chest: Comparison: 09/09/2023 Findings: Stable calcified granulomas. The lungs are otherwise clear, without evidence of focal conso lidation or pleural effusion. Cardiomediastinal silhouette is within normal limits. Bones and soft t issues are unremarkable. Impression: No acute abnormality. COPD pattern. Reviewed, dictated and finalized at location . Impression: No acute abnormality. COPD pattern.
[2024-03-21 14:32] LABS: Basophils Percent Auto 0.8 % (0.2-1.2); Eosinophils Absolute Auto 0.3 K/mm3 (0-0.3); Hematocrit 38.6 % (37.0-47.0); Hemoglobin 12.2 g/dL (12.0-15.0); Immature Granulocyte Absolute 0.01 K/mm3 (0.00-0.031); Immature Granulocyte Percent A 0.2 % (0-0.5); Lymphocytes Absolute Auto 1.05 K/mm3 (0.9-3.2); Lymphocytes Percent Auto 20.1 % (18.3-44.2); Mean Corpuscular HGB Conc 31.6 g/dl (32-36); Mean Corpuscular Hemoglobin 31.4 pg (26-34); Mean Corpuscular Volume 99.5 fl (80-100); Mean Platelet Volume 10.7 fl (7.4-10.4); Monocytes Absolute Auto 0.5 K/mm3 (0.1-0.6); Monocytes Percent Auto 8.6 % (2.6-8.5); Neutrophils Absolute Auto 3.4 K/mm3 (1.3-6.7); Neutrophils Percent Auto 65.3 % (45.5-73.1); Platelet Count Result 226 k/mm3 (150-375); Red Blood Count 3.88 M/mm3 (4.2-5.4); Red Cell Distribution Width 13.2 % (11.5-14.5); White Blood Count 5.2 K/mm3 (4.5-10.0)
[2024-03-21 14:37] LABS: Appearance Urine Clear (Clear); Bilirubin Urine Negative (Negative); Blood Urine Negative (Negative); Color Urine Yellow (Yellow); Glucose Urine UA Negative (Negative); Ketones Urine Negative (Negative); Leukocyte Esterase Ur Negative LEU/UL (Negative); Nitrate Urine Negative (Negative); Protein Urine Negative (Negative); Specific Grav Ur 1.014 (1.001-1.035); Urobilinogen Urine 0.2 mg/dL (<2.0); pH Urine 6.5 (5.0-9.0)
[2024-03-21 14:42] LABS: Add Urine Microscopic? NO
[2024-03-21 14:49] LABS: Alanine Aminotransferase 13 U/L (6-35); Albumin Level 4.3 g/dL (3.5-5.1); Alkaline Phosphatase 113 U/L (38-126); Anion Gap 5 mmol/L (4-12); Aspartate Amino Transferase 27 U/L (14-36); Bilirubin,Total 0.5 mg/dL (0.2-1.3); Blood Urea Nitrogen 19 mg/dL (7-17); Calcium 9.4 mg/dL (8.4-10.2); Carbon Dioxide 31 mmol/L (22-30); Chloride 106 mmol/L (98-107); Estimated Glomerular Filt Rate 36; Glucose 92 mg/dL (65-110); Potassium 4.9 mmol/L (3.4-5.0); Sodium 142 mmol/L (137-145)
[2024-03-22 14:22] LABS: Proteinase 3 PR3 Antibodies <1.0 AI
== END 2024-03-21 12:37 | disposition home or self-care (01) ==
LOC: ANHIMG 12:48
PROVIDERS: PCP Otolaryngology; Visit Provider Internal Medicine Pulmonary Disease
DX: J44.9 Chronic obstructive pulmonary disease, unspecified (principal); N18.32 Chronic kidney disease, stage 3b
CPT/HCPCS: 36415; 71046; 80053; 81003; 85025; 86036

== ENCOUNTER 2024-05-07 13:35 | Outpatient (CLI) | payer MEDICARE, SELFPAY ==
[2024-05-07 19:43] LABS: Total Protein Urine Random 7 mg/dL; Ur Ttl Prot Creatinine Ratio 0.07 mg/mg (0-0.20)
[2024-05-07 20:03] LABS: Appearance Urine Clear (Clear); Bilirubin Urine Negative (Negative); Blood Urine Negative (Negative); Color Urine Yellow (Yellow); Glucose Urine UA Negative (Negative); Ketones Urine Negative (Negative); Leukocyte Esterase Ur Negative LEU/UL (Negative); Nitrate Urine Negative (Negative); Protein Urine Negative (Negative); Specific Grav Ur 1.014 (1.001-1.035); Urobilinogen Urine 0.2 mg/dL (<2.0); pH Urine 5.5 (5.0-9.0)
[2024-05-07 20:05] LABS: Add Urine Microscopic? NO
[2024-05-07 20:09] LABS: Vitamin D 25 Hydroxy 71.7 ng/mL
[2024-05-07 20:31] LABS: Albumin Level 4.3 g/dL (3.5-5.1); Anion Gap 5 mmol/L (4-12); Blood Urea Nitrogen 20 mg/dL (7-17); Calcium 9.6 mg/dL (8.4-10.2); Carbon Dioxide 31 mmol/L (22-30); Chloride 106 mmol/L (98-107); Estimated Glomerular Filt Rate 43; Glucose 132 mg/dL (65-110); Phosphorus 3.2 mg/dL (2.5-4.5); Potassium 3.8 mmol/L (3.4-5.0); Sodium 142 mmol/L (137-145)
[2024-05-07 20:51] LABS: Parathyroid Intact 88.7 pg/mL (7.5-53.5)
[2024-05-11 13:38] LABS: ANCA Screen NEGATIVE (NEGATIVE)
== END 2024-05-07 13:36 | disposition home or self-care (01) ==
LOC: ANHGOSHLAB 13:37
PROVIDERS: PCP Internal Medicine; Visit Provider Internal Medicine Nephrology
DX: E55.9 Vitamin D deficiency, unspecified (principal); I12.9 Hypertensive chronic kidney disease with stage 1 through stage 4 chronic kidney disease, or unspecified chronic kidney disease; N18.32 Chronic kidney disease, stage 3b; N25.81 Secondary hyperparathyroidism of renal origin; R76.8 Other specified abnormal immunological findings in serum
CPT/HCPCS: 36415; 80069; 81003; 82306; 82570; 83970; 84156; 86036

== ENCOUNTER 2024-07-25 17:25 | Emergency (ER) | payer MEDICARE, SELFPAY ==
--- NOTE | ~2024-07-25 | CT_ITS ---
CT brain wo con, CT facial & cervical spine wo Ordering provider: Cayetano Leiva MD History: 83 years Female with . trauma . Comparison: None. Technique: CT of the head without contrast. FINDINGS: BRAIN PARENCHYMA AND CSF SPACES: Mild leukoaraiosis and diffuse cortical atrophy. Mild atheromatous d isease. Old infarct in the left anterior internal capsule. No midline shift, mass effect or hemorrhag e. The brain parenchyma and CSF spaces are otherwise normal. BONES: The fracture of the right frontal bone is noted. SOFT TISSUES: Visualized nasopharynx is normal. Superficial soft tissues are normal. IMPRESSION: No acute intracranial findings. Fracture of the right frontal bone. CT brain wo con, CT facial & cervical spine wo Ordering provider: Cayetano Leiva MD History: . trauma . Comparison: None. Technique: Thin slice axial CT of the facial bones was performed without contrast. Coronal and sagit valencia reformatted images were also obtained. . Automated exposure control and iterative reconstruction technique were employed. The dose-length product was 605.33 (accession [id number]), 156.37 (acce ssion [id number]) mGy-cm. FINDINGS: PARANASAL SINUSES: Fracture of the anterior wall of the right maxillary sinus with air-fluid level. F racture of the inferior wall of the right orbit.. BONES: Multiple sites Fracture of the right zygomatic arch. Fracture of the lateral wall of the right orbit. ORBITS AND SUPERFICIAL SOFT TISSUES: The optic globes and orbits are normal. Air is seen anterior to the right orbit with minimal soft tissue swelling. Soft tissue swelling also seen over the right zygo matic arch. Otherwise, The superficial soft tissues are normal. VISUALIZED MASTOIDS: Minimal effusion the right mastoid air cells. LIMITED VISUALIZED BRAIN PARENCHYMA: Normal. IMPRESSION: Fracture of the anterior wall of the right maxillary sinus. Fracture of the floor of the right orbit. Fracture of the right zygomatic arch and multiple sites. Fracture of the lateral wall of the right orbit. Air-fluid level in the right maxillary sinus. CT brain wo con, CT facial & cervical spine wo Ordering provider: Cayetano Leiva MD History: . trauma . Comparison: None. Technique: CT of the cervical spine was performed without contrast. Sagittal and coronal reformatted images were also obtained and reviewed. Automated exposure control and iterative reconstruction luis manuel hnique were employed. The dose-length product was 605.33 (accession [id number]), 156.37 (accessio n [id number]) mGy-cm. FINDINGS: VERTEBRAE: No subluxation or acute fracture. The occipital condyles are intact. Postoperative change s seen at the level of C2-C3. Minimal anterolisthesis at the level of C7-T1. DISC SPACES: Narrowing of the disc C4-C5, C5-C6 and C6-C7. Multilevel facet joint disease. Multilevel uncovertebral joint osteoarthritic changes. Multilevel spinal canal stenosis and intervertebral fora yari narrowing. PARASPINOUS SOFT TISSUES: Emphysematous changes of the lungs. Bilateral carotid calcifications. IMPRESSION: No acute osseous abnormality cervical spine. Multilevel degenerative disc disease. Reviewed, dictated and finalized at location A. IMPRESSION: No acute intracranial findings. Fracture of the right frontal bone. CT brain wo con, CT facial & cervical spine wo Ordering provider: Cayetano Leiva MD History: . renetta
[2024-07-25 17:26] VITALS: BP 156/91; PULSE 77; RESP 16; TEMP 36.6
[2024-07-25 17:39] VITALS: BP 173/78; PULSE 73; O2SAT 99
--- NOTE | 2024-07-25 18:20 | ED.GENADULT ---
HPI - General Adult General Chief complaint: Fall <Cayetano Leiva MD - Last Filed: 07/25/24 19:56> Stated complaint: fall <Cayetano Leiva MD - Last Filed: 07/25/24 19:56> Time Seen by Provider: 07/25/24 17:34 <Cayetano Leiva MD - Last Filed: 07/25/24 19:56> History of Present Illness HPI narrative: Patient is an 83-year-old female who presents ER after a fall. She was cleaning around her home when she fell striking her face on either a in table or a coffee table. No LOC. She is not on blood thinning medicines. She did have some amnesia of the event. No change in vision but had some slight blurring earlier. Bruising beneath the right eye. Able ambulate without issue. Mild neck pain. <Cayetano Leiva MD - Last Filed: 07/25/24 19:56> Related Data Home medications: Home Medications Medication Instructions Recorded Confirmed calcium acetate(phosphat bind) 667 667 mg PO DAILY 11/12/19 06/12/24 mg capsule cholecalciferol (vitamin D3) 75 3,000 unit PO DAILY 11/12/19 06/12/24 mcg (3,000 unit) tablet magnesium 30 mg tablet 30 mg PO DAILY 11/12/19 06/12/24 quetiapine 25 mg tablet (Seroquel) 25 mg PO QHS 08/03/22 06/12/24 eszopiclone 2 mg tablet 2 mg PO HS 01/25/23 06/12/24 acetaminophen 650 mg 650 mg PO Q8H 01/05/24 06/12/24 tablet,extended release (Tylenol Arthritis Pain) ascorbic acid (vitamin C) 1,000 mg 1 g PO DAILY 01/10/24 06/12/24 capsule <Cayetano Leiva MD - Last Filed: 07/25/24 19:56> Allergies/adverse reactions: Allergies Allergy/AdvReac Type Severity Reaction Status Date / Time adhesive Allergy Unknown Itching Verified 06/12/24 14:51 Sulfa (Sulfonamide Allergy Unknown facial Verified 06/12/24 14:51 Antibiotics) swelling <Cayetano Leiva MD - Last Filed: 07/25/24 19:56> Review of Systems Review of Systems: All systems reviewed & are unremarkable except as noted in HPI and below <Cayetano Leiva MD - Last Filed: 07/25/24 19:56> Constitutional: Constitutional: Reports no additional constitutional complaints <Cayetano Leiva MD - Last Filed: 07/25/24 19:56> Eyes: Eyes: Reports no additional eye complaints <Cayetano Leiva MD - Last Filed: 07/25/24 19:56> Cardiovascular: Cardiovascular: Reports no additional cardiovascular complaints <Cayetano Leiva MD - Last Filed: 07/25/24 19:56> Musculoskeletal: Musculoskeletal: Reports no additional musculoskeletal complaints <Cayetano eLiva MD - Last Filed: 07/25/24 19:56> Neurologic: Reports system reviewed and no additional complaints, except as documented <Cayetano Leiva MD - Last Filed: 07/25/24 19:56> PMFSH Past Medical History Medical History: Medical History Abnormal EKG Age related osteoporosis Anemia Bipolar 1 disorder Cataract Chronic renal failure COPD (chronic obstructive pulmonary disease) Fibrocystic breast disease GERD (gastroesophageal reflux disease) Graves disease Hyperglycemia Hyperlipidemia Hyperthyroidism Migraine Osteoarthritis Osteopenia of both hips Polyarthritis Pulmonary emphysema Spinal stenosis Stroke Type 2 diabetes mellitus <Cayetano Leiva MD - Last Filed: 07/25/24 19:56> Surgical History Surgical History: Surgical History H/O breast surgery 2 Reconstructive H/O mastectomy Double 1975 H/O neck surgery History of hip replacement Right 06/2022 <Cayetano Leiva MD - Last Filed: 07/25/24 19:56> Family History Family History: Family History Father Family history of osteoarthritis Diabetes mellitus Heart disease Sibling Family history of malignant melanoma, Onset Age: 60 Patient's sister is Mother Family history of malignant neoplasm of breast in first degree relative, Onset Age: 56
[2024-07-25] MEDS: TETANUS,DIPHTHERIA,AC PERTUSSIS ADULT (0.5 ML) BOOSTRIX IM (19:07)
[2024-07-25] MEDS: traMADol HCL (*CRX) 50 MG TABLET PO (19:09)
[2024-07-25] MEDS: CEPHALEXIN 500 MG CAPSULE PO (20:10)
[2024-07-25] MEDS: ERYTHROMYCIN OPHTH OINTMENT 1 GM TUBE 1 APPLIC EACH EYE (20:10)
[2024-07-25 20:42] VITALS: BP 175/94; PULSE 73; RESP 20; TEMP 36.5; O2SAT 96
== END 2024-07-25 21:03 | disposition home or self-care (01) ==
PROVIDERS: Emergency Provider Emergency Medicine; PCP Internal Medicine
DX: S02.31XA Fracture of orbital floor, right side, initial encounter for closed fracture (principal); S02.0XXA Fracture of vault of skull, initial encounter for closed fracture; S02.40CA Maxillary fracture, right side, initial encounter for closed fracture; W22.03XA Walked into furniture, initial encounter; M81.0 Age-related osteoporosis without current pathological fracture; F31.9 Bipolar disorder, unspecified; K21.9 Gastro-esophageal reflux disease without esophagitis; E78.5 Hyperlipidemia, unspecified; E11.9 Type 2 diabetes mellitus without complications; E05.00 Thyrotoxicosis with diffuse goiter without thyrotoxic crisis or storm; Z96.641 Presence of right artificial hip joint; Z87.891 Personal history of nicotine dependence; Z23 Encounter for immunization
CPT/HCPCS: 70450; 70486; 72125; 90471; 90715; 99284; A9270

== ENCOUNTER 2025-02-15 14:19 | Outpatient (CLI) | payer MEDICARE, SELFPAY ==
--- OUTSIDE RECORDS SUMMARY | 2025-02-15 14:22 | XMS_ITS | Clinical Summary ---
Author Organization [facility] Address [address] [place] [address] Care Team Providers Care Bean Snapper Name Role Phone Salenaharleenandre Johan Olivier DO Primary Care Provider Source Comments [facility],non-owned Affiliates and Associated Physician Practices is amultiple site organization consisting of ambulatory clinics and hospital sitesin [place], [place], [place] and [place]. This disclosure is being madepursuant to the Care Everywhere program and may not contain all information available regarding this patient. Last updated 18.[facility] Allergies Active Allergy Reactions Criticality Noted Date Comments Amoxicillin Other 10/18/2016 Can take the first round but if takes a 2nd round rash and itching Sulfa Drugs Other 10/18/2016 Sulfa scares me Medications * Be aware that medications may not be up to date on this document. Alwaysverify current medications with the patient. Medication Sig Dispensed Refills Start Date End Date Status Fluticasone-Salmetero l (ADVAIR HFA IN) Active methylPREDNISolone (MEDROL DOSEPAK) 4 MG tabletIndications:MANAGER STRATEGIC DEVELOPMENT D exacerbation (HCC) Take dose bonnie as directed 1 Each 10/28/2016 Active Additional Information Patient not taking.Reported on 07/09/2020 ALBUTEROL IN Active tiotropium (SPIRIVA HANDIHALER) 18 MCG inhalation capsule Inhale 1 capsule by mouth once daily Active atorvastatin (LIPITOR) 10 MG tablet Take 10 mg by mouth at bedtime Active Nebivolol HCl (BYSTOLIC PO) Active Omeprazole 20 MG TBDD Act dionne clorazepate (TRANXENE) 15 MG tablet Take 15 mg by mouth 2 times daily Active Zolpidem Tartrate (ZOLPIDEM PO) Active escitalopram (LEXAPRO) 10 MG tablet Take 10 mg by mouth once daily Active Social History Tobacco Use Types Packs/Day Years Used Date Smoking Tobacco: Former Smokeless Tobacco: Never Alcohol Use Standard Drinks/Week Comments Never 0 (1 standard drink = 0.6 oz pur e alcohol) AUDIT-C Answer Date Recorded Q1: How often do you have a drink containing alc ohol? Never 07/09/2020 Average Number of Drinks Not on file 020 Frequency of Binge Drinking Not on file 12/2019 Sex and Gender Information Value Date Recorded Sex Assigned at Not on file Gender Identity Not on file Sexual Orientation Not on file Last Filed Vital Signs Vital Sign Reading Time Taken Comments Blood Pressure 122/70 07/09/2020 11:39 AM CDT Pulse 76 07/09/2020 11:39 AM CDT Temperature 36.8 C (98.2 F) 07/09/2020 11:39 AM CDT Respiratory Rate 16 07/09/2020 11:39 AM CDT Oxygen Saturation 98% 07/09/2020 11:39 AM CDT Inhaled Oxygen Concentration - - Weight 63 kg (139 lb) 07/09/2020 11:39 AM CDT Height 165.1 cm (5' 5 ) 07/09/2020 11:39 AM CDT Body Mass Index 23.13 07/09/2020 11:39 AM CDT Plan of Treatment Health Maintenance Due Date Last Done Comments BONE DENSITY TESTING 1942 DTAP/TDAP/TD VACCINES (1 - Tdap) 1961 PNEUMOCOCCAL VACCINE 50+ (1 of 1 - PCV) 1992 ZOSTER VACCINE (1 of 2) 1992 Respiratory Syncytial Virus (RSV) Vaccine Pt: or over 60 yrs (1 - 1-dose 75+ series) 2017 COVID-19 VACCINE (1 - 2023- season) 2024 DEPRESSION SCREENING 11/07/2024 MEDICARE AWV CALENDAR YEAR 2024 INFLUENZA VACCINE (Season Ended) 2025 07/07/2020, 08/07/2019, 08/01/2018, Additional history exists HEPATITIS B VACCINE Aged Out No longe r eligible based on patient's age to complete this topic HIB VACCINE Aged Out No longer eligi ble based on patient's age to complete this topic HPV VACCINE Aged Out No longer eligi ble based on patient's age to complete this topic MENINGOCOCCAL (Group B) VACCINE SHARED DECISION-MAKING Aged Out No longer eligible based on patient's age to complete this topic MENINGOCOCCAL GROUPS A/C/Y/W VACCINE Aged Out No longer eligible based on patient's age to complete this topic Care Teams Bean Snapper Relationship Specialty Start Date End Date Johan Loredo DO PCP - General Internal Medicine 10/18/16
--- OUTSIDE RECORDS SUMMARY | 2025-02-15 14:22 | XMS_ITS | Encounter Summary ---
Author Organization [facility] Address [address] [place] [address] Care Team Providers Care Cushion Maker Hand Name Role Phone Johan Loredo DO Primary Care Provider [phone] Stanford Meyers MD Unavailable [phone] Elin Brown RN Unavailable [phone] Reason for Visit * Reason Onset Date Comments Scheduling Appointments 05/22/2020 Called f or left hip injection reminder Encounter Details Date Type Department Care Team (Late st Contact Info) Description 05/22/2020 Telephone [facility] [address] [place] [id number] Kristie Gavin RT Scheduling Appointments (Called for left hip injection reminder) Social History Tobacco Use Types Packs/Day Years Used Date Smoking Tobacco: Former Cigarettes 1 20 1 970 - 1989 Smokeless Tobacco: Former Alcohol Use Standard Drinks/Week Comments Yes 0 (1 standard drink = 0.6 oz pur e alcohol) PHQ-2 Answer Date Recorded PHQ-2 Score 1 06/29/2019 Comments No Sex and Gender Information Value Date Recorded Sex Assigned at Not on file Legal Sex Female 9:47 AM MEDICAL RECEPTIONIST MEDICAL ASSISTANT Gender Identity Not on file Sexual Orientation Not on file documented as of this encounter Plan of Treatment Not on file documented as of this encounter Goals Goal Patient Goal Type Associated Problems Recent Progress Patient-Stated? Author [facility] On track( 018 1:52 PM MEDICAL RECEPTIONIST MEDICAL ASSISTANT) No Tarik Ugarte RN Note: Do gardening with minimal pain. 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
--- OUTSIDE RECORDS SUMMARY | 2025-02-15 14:22 | XMS_ITS | Clinical Summary ---
Author Organization [facility] Address [address] [place] [address] Phone Care Team Providers Care Admissions Clerk Name Role Phone Johan Loredo DO Primary Care Provider Allergies Active Allergy Reactions Criticality Noted Date Comments Amoxicillin Other (see Comments) Low 10/18/2016 Can take the first round but if takes a 2nd round rash and itching Can take the first round but if takes a 2nd round rash and itching Latex Unknown 02/09/2018 Sulfa Antibiotics Other (see Comments) 10/18/20 16 Sulfa scares me Sulfasalazine Other (see Comments) Low 10/18/2016 Sulfa scares me Medications Calcium Carbonate 500 MG Chewable Tablet Take by mouth. Active albuterol (ProAir HFA) 108 (90 Base) MCG/ACT Aerosol Solution 0 Active atorvastatin (LIPITOR) 20 MG Tablet TK 1 T PO QD 8 Active cholecalciferol 25 mcg Tablet Active clonazePAM (KlonoPIN) 0.5 MG Tablet clonazepam 0.5 mg tablet Active Escitalopram Oxalate 5 MG Tablet Take 5 mg by mouth. 9 Active fluticasone-salm eterol (ADVAIR) 250-50 MCG/DOSE AEROSOL POWDER, BREATH ACTIVATED 1 Active Multiple Vitamin (Multi-Vitamin) Tablet Active magnesium oxide (MAG-OX) 400 MG Tablet Active zolpidem (AMBIEN) 5 MG Tablet zolpidem 5 mg tablet Active nebivolol (BYSTOLIC) 2.5 MG Tablet Take by mouth. Activ e pantoprazole (PROTONIX) 20 MG Tablet Delayed ResponseIndicati ons:Gastroesopha geal reflux disease, unspecified whether esophagitis present Take 1 Tablet by mouth daily. 90 Tablet 3 Active Active Problems No known active problems Immunizations Immunization Administration Dates Next Due Influenza, High-dose, Quadrivalent 07/07/2020 Influenza, Seasonal, Injecta ble, Undefined 08/21/2013 Influenza, high-dose, trivalent, PF /11/2019,08/07/2019,08/01/2018,2016,07/27/2016,08/05/2015,07/18/2014 Pneumococcal Vaccine - 13 Valent 07/27/2016 Pneumococcal Vaccine Adult - 23 Valent 08/23/2019 Family History Medical History Relation Name Comments Breast Cancer Mother Stomach Cancer Paternal Grandmother Melanoma Sister Relation Name Status Comments Mother Paternal Grandmother Sister Social History Tobacco Use Types Packs/Day Years Used Date Smoking Tobacco: Former Smokeless Tobacco: Former Tobacco Cessation:Counseling Given: No Alcohol Use Standard Drinks/Week Comments Not Currently 0 (1 standard drink = 0.6 oz pur e alcohol) Sexually Active Control Partners Comments Not Currently Comments No Sex and Gender Information Value Date Recorded Sex Assigned at Not on file Legal Sex Female 11:05 PM CDT Gender Identity Not on file Sexual Orientation Not on file Last Filed Vital Signs Vital Sign Reading Time Taken Comments Blood Pressure 154/78 12/16/2020 12:43 PM DESIGN MANAGER Pulse 80 12/16/2020 12:43 PM DESIGN MANAGER Temperature 35.9 C (96.7 F) 12/16/2020 12:43 PM DESIGN MANAGER Respiratory Rate 18 12/16/2020 12:43 PM DESIGN MANAGER Oxygen Saturation 92% 12/16/2020 12:43 PM DESIGN MANAGER Inhaled Oxygen Concentration - - Weight 65.6 kg (144 lb 9.6 oz) 12/16/2020 12:43 PM DESIGN MANAGER Height 160 cm (5' 3 ) 12/16/2020 12:43 PM DESIGN MANAGER Body Mass Index 25.61 12/16/2020 12:43 PM DESIGN MANAGER Plan of Treatment Health Maintenance Due Date Last Done Comments Hepatitis C Virus (HCV) Screening 1940 TdaP Immunization 1940 Zoster Immunization (1 of 2) 1992 Respiratory Syncytial Virus (RSV) Immunization (Adult) (1 - 1-dose 75+ series) 2017 Influenza Immunization (#1) 07/08/202406/09, 07/07/2020, 08/07/2019, Additional history exists SARS-COV-2 Immunization (2023- season) 2024 08/29/2021, 02/01/2021, 01/06/2021 Pneumococcal Immunization (50+ years) Completed 08/23/2019, 07/27/2016 Hepatitis B Immunization Aged Out No longer eligible based on patient's age to complete this topic Meningococcal Immunization (ACWY) Aged Out No longer eligible based on patient's age to complete this topic Rotavirus Immunization Aged Out No lo nger eligible based on patient's age to complete this topic Insurance MEDICARE C [employer] Care Teams Admissions Clerk Relationship Specialty Start Date End Date Johan Loredo DO [facility] [place] [address] PCP - General Internal Medicine 11/20/20
--- OUTSIDE RECORDS SUMMARY | 2025-02-15 14:22 | XMS_ITS ---
Author Name [facility]obar Gay Address [address] [place] [address] Phone [phone] Organization [facility] Address [address] [place] [address] Phone [phone] Care Team Providers Care Weaving Supervisor Name Role Phone Lamin Zamora Unavailable Kanu An Unavailable Functional Status No Results Mental Status No Results Allergies and Intolerances Name Onset Date Reaction Severity Latex (Allergy) Lizabeth Feb 25 00:00:00 EDT 2021 sulfasalazine (Allergy) Lizabeth Feb 25 00:00:00 EDT 2021 amoxicillin (Allergy) Lizabeth Feb 25 00:00:00 EDT Sulfa (Sulfonamide Antibiotics) (Allergy) Lizabeth Ap r 21 00:00:00 EDT 2021 Medications Medication Directions Start Date End Date traMADoL 50 mg tablet 1 tab TABLET Oral 2 Times Daily TueMarch 15 16:00:00 EDT 2021March 27 01:00:00 EDT 2021 traMADoL 50 mg tablet 1 tab TABLET Oral PRN 1 Time Daily for breakthrough pain TueMarch 15 16:00:00 EDT 2021March 27 01:00:00 EDT 2021 traMADoL 50 mg tablet 1 tablet TABLET Or al PRN 3 Times Daily TueMarch 08 14:00:00 EDT 2021March 15 15:43:00 EDT 2021 Senna with Docusate Sodium 8.6 mg-50 mg tablet 2 tablets TABLET Oral PRN 2 Times Daily Constipation Sat Mar 06 12:00:00 EDT 2021March 27 01:00:00 EDT 2021 ascorbic acid (vitamin C) 250 mg tablet 250mg TABLET Oral 1 Time Daily Supplement TueMar 06 12:00:00 ED2021March 27:00:00 ED2021 calcium carbonate 500 mg calcium (1,250 mg) tablet 1 tablet TABLET Oral 2 Times Daily Supplement TueMar 06 12:00:00 ED2021March 27:00:00 ED2021 multivitamin tablet 1 tablet TABLET Oral 1 Time Daily Supplement TueMar 06 15:00:00 ED2021March 27:00: ED2021 magnesium 400 mg (as magnesium oxide) tablet 400mg TABLET Oral 1 Time Daily Supplement TueMar 06 15:00:00 ED2021March 27:00:00 EDT 2021 nystatin 100,000 unit/mL oral suspension 15mL SUSPENSION, ORAL (FINAL DOSE FORM) Oral 2 Times Daily Thrush TueMar 06 13:00:00 EDT 2021March 15 15:41:00 EDT 2021 ascorbic acid (vitamin C) 250 mg tablet 1 tablet TABLET Oral 1 Time Daily DX: SUPPLEMENT TueMar 05 19:00:00 ED2021Mar 06 12:29:00 ED2021 atorvastatin 20 mg tablet 1 tablet TABLE T Oral 1 Time Daily DX: HYPERLIPIDEMIA TueMar 05 12:30:00 ED2021March 27:00:00 ED2021 calcium carbonate 500 mg calcium (1,250 mg) chewable tablet 1 tablet TABLET,CHEWABLE Oral PRN 2 Times Daily DX: SUPPLEMENT TueMar 05 12:30:00 ED2021Mar 06 12:29:00 EDT 2021 cholecalciferol (vitamin D3) 25 mcg (1,000 unit) tablet 1 tablet TABLET Oral 1 Time Daily TueMar 05 12:30:00 ED2021March 27:00:00 ED2021 escitalopram 5 mg tablet 1 tablet TABLET Oral 1 Time Daily TueMar 05 12:30:00 ED2021March 27:00:00 ED2021 Allergy Relief (loratadine) 10 mg tablet 1 tablet TABLET Oral 1 Time Daily TueMar 05 12:30:00 ED2021March 27 01:00:00 ED2021 magnesium 400 mg (as magnesium oxide) tablet 1 tablet TABLET Oral 1 Time Daily DX: SUPPLEMENT TueMar 05 12:30:00 ED2021Mar 06 12:49:00 EDT 2021 multivitamin tablet 1 tablet TABLET Oral 1 Time Daily DX: SUPPLEMENT TueMar 05 12:30:00 EDT 2021Mar 06 12:29:00 EDT 2021 nebivoloL 5 mg tablet 1 tablet TABLET Or al 1 Time Daily DX: HYPERTENSION TueMar 05 12:30:00 EDT 2021March 27 01:00:00 EDT 2021 omeprazole 20 mg capsule,delayed release 1 CAPSULE,DELAYED RELEASE (ENTERIC COATED) Oral 1 Time Daily TueMar 05 12:30:00 EDT 2021March 27:00:00 EDT 2021 albuterol sulfate HFA 90 mcg/actuation aerosol inhaler 1 PUFF HFA AEROSOL WITH ADAPTER (GRAM) Inhalation 1 Time Daily DX: WHEEZING TueMar 05 12:30:00 EDT 2021March 27:00:00 EDT 2021 Senexon-S 8.6 mg-50 mg tablet 2 tablets TABLET Oral 2 Times Daily DX: CONSTIPATION TueMar 05 19:30:00 EDT 2021Mar 06 12:18:00 EDT 2021 Spiriva Respimat 1.25 mcg/actuation solution for inhalation 1 PUFF MIST INHALER (GRAM) Inhalation 1 Time Daily TueMar 05 12:30:00 EDT 2021March 27:00:00 EDT 2021 Eliquis 2.5 mg tablet 1 TABLET TABLET Or al 2 Times Daily DX: AFIB TueMar 05 19:30:00 EDT 2021Mar 05 18:44:00 EDT 2021 cephALEXin 250 mg capsule 1 CAPSULE CAPS ULE Oral 3 Times Daily for 11 Days DX: INFECTION TueMar 05 12:30:00 EDT 2021March 16 12:29:00 EDT 2021 polyethylene glycoL 3350 17 gram oral powder packet 1 PACKET POWDER IN PACKET (EA) Oral 1 Time Daily DX: CONSTIPATION TueMar 05 12:30:00 EDT 2021March 27:00:00 EDT 2021 senna 8.6 mg tablet 1 TABLET TABLET Oral PRN 1 Time Daily FOR CONSTIPATION TueMar 05 12:30:00 EDT 2021March 27 01:00:00 EDT 2021 acetaminophen 500 mg capsule 2 CAPSULES CAPSULE Oral PRN Every 6 Hours FOR PAIN (2 CAPSULES= 1000MG)*DO NOT EXCEED 3GM APAP/DAY FROM ALL SOURCES* TueMar 05 12:30:00 EDT 2021March 27 01:00:00 EDT 2021 traMADoL 50 mg tablet 1/2 TABLET TABLET Oral PRN 3 Times Daily FOR PAIN (1/2 TABLET= 25MG) TueMar 05 12:30:00 EDT 2021March 15 15:43:00 EDT 2021 OLANZapine 2.5 mg tablet 1 TABLET TABLET Oral PRN 2 Times Daily FOR AGITATION TueMar 05 12:30:00 EDT 2021March 09 12:18:00 EDT 2021 as directed Subcutan eous 4 Times Daily TueMar 05 20:00:00 EDT 2021Mar 05 18:44:00 EDT 2021 Eliquis 2.5 mg tablet 1 TABLET TABLET Or al 2 Times Daily for 30 Days DX: AFIB TueMar 06 01:00:00 EDT 2021March 27 01:00:00 EDT 2021 azithromycin 500 mg tablet 1 tab TABLET Oral 1 Time Daily for 1 Day bronchitis TueFeb 27 01:00:00 EDT 2021Feb 28 00:59:00 EDT 2021 azithromycin 250 mg tablet 1 tablet TABL ET Oral 1 Time Daily for 4 Days TueFeb 28 01:00:00 EDT 2021Mar 04 00:59:00 EDT 2021 TUBErsoL 5 tub. unit/0.1 mL intradermal injection solution 0.1 ml VIAL (ML) Intradermal 1 Time Weekly for 2 Weeks TueFeb 25 13:00:00 ED2021Mar 05 17:54:00 ED2021 TUBErsoL 5 tub. unit/0.1 mL intradermal injection solution Read Results VIAL (ML) Other 1 Time Weekly for 2 Weeks TueFeb 28 13:00:00 ED2021Mar 05 17:54:00 ED2021 clonazePAM 0.5 mg tablet 1 tablet TABLET Oral PRN 1 Time Daily TueFeb 25 14:00:00 ED2021Mar 05 17:54:00 ED2021 zolpidem 5 mg tablet 1 tablet TABLET Ora l PRN Hour Of Sleep TueFeb 25 14:00:00 ED2021Mar 05 17:54:00 EDT 2021 acetaminophen 325 mg tablet 2 tablets TA BLET Oral PRN Every 4 Hours TueFeb 24 19:00:00 ED2021Mar 05 17:54:00 EDT 2021 ascorbic acid (vitamin C) 250 mg tablet 1 tablet TABLET Oral 1 Time Daily TueFeb 24 19:00:00 ED2021Mar 05 17:54:00 EDT 2021 aspirin 325 mg tablet,delayed release 1 tablet TABLET, DELAYED RELEASE (ENTERIC COATED) Oral 1 Time Daily TueFeb 24 19:00:00 EDT 2021Mar 05 17:54:00 EDT 2021 atorvastatin 20 mg tablet 1 tablet TABLE T Oral 1 Time Daily TueFeb 25 19:00:00 EDT 2021Mar 05 17:54:00 EDT 2021 calcium carbonate 500 mg calcium (1,250 mg) chewable tablet 1 tablet TABLET,CHEWABLE Oral PRN 2 Times Daily TueFeb 24 19:00:00 ED2021Mar 05 17:54:00 EDT 2021 cholecalciferol (vitamin D3) 25 mcg (1,000 unit) tablet 1 tablet TABLET Oral 1 Time Daily TueFeb 24 19:00:00 ED2021Mar 05 17:54:00 EDT 2021 clonazePAM 0.5 mg tablet 1 tablet TABLET Oral PRN 1 Time Daily TueFeb 24 19:00:00 EDT 2021Feb 25 14:56:00 EDT 2021 escitalopram 5 mg tablet 1 tablet TABLET Oral 1 Time Daily TueFeb 24 19:00:00 ED2021Mar 05 17:54:00 ED2021 Allergy Relief (loratadine) 10 mg tablet 1 tablet TABLET Oral 1 Time Daily TueFeb 24 19:00:00 ED2021Mar 05 17:54:00 ED2021 magnesium 400 mg (as magnesium oxide) tablet 1 tablet TABLET Oral 1 Time Daily TueFeb 24 19:00:00 ED2021Mar 05 17:54:00 ED2021 multivitamin tablet 1 tablet TABLET Oral 1 Time Daily TueFeb 24 19:00:00 ED2021Mar 05 17:54:00 EDT 2021 nebivoloL 5 mg tablet 1 tablet TABLET Or al 1 Time Daily TueFeb 24 19:00:00 ED2021Mar 05 17:54:00 EDT 2021 OLANZapine 2.5 mg tablet 1 tablet TABLET Oral PRN 2 Times Daily TueFeb 24 19:00:00 EDT 2021Feb 25 11:07:00 EDT 2021 omeprazole 20 mg capsule,delayed release 1 CAPSULE,DELAYED RELEASE (ENTERIC COATED) Oral 1 Time Daily TueFeb 24 19:00:00 EDT 2021Mar 05 17:54:00 EDT 2021 ondansetron 4 mg disintegrating tablet 1 tablet TABLET,DISINTEGRATING Oral PRN Every 6 Hours TueFeb 24 19:00:00 EDT 2021Mar 05 17:54:00 EDT 2021 albuterol sulfate HFA 90 mcg/actuation aerosol inhaler 1 HFA AEROSOL WITH ADAPTER (GRAM) Inhalation 1 Time Daily TueFeb 25 01:00:00 EDT 2021Mar 05 17:54:00 EDT 2021 Senexon-S 8.6 mg-50 mg tablet 2 tablets TABLET Oral 2 Times Daily TueFeb 24 19:00:00 EDT 2021Mar 05 17:54:00 EDT 2021 Spiriva Respimat 1.25 mcg/actuation solution for inhalation 1 MIST INHALER (GRAM) Inhalation 1 Time Daily TueFeb 24 19:00:00 EDT 2021Mar 05 17:54:00 EDT 2021 traMADoL 50 mg tablet 1-2 tablets TABLET Oral PRN Every 4 Hours TueFeb 24 19:00:00 EDT 2021Mar 05 17:54:00 EDT 2021 zolpidem 5 mg tablet 1 tablet TABLET Ora l 1 Time Daily TueFeb 24 19:00:00 EDT 2021Feb 24 22:39:00 EDT 2021 zolpidem 5 mg tablet 1 tablet TABLET Ora l PRN Hour Of Sleep TueFeb 24 22:38:00 EDT 2021Feb 25 14:57:00 EDT 2021 Problems Active Concerns * Aftercare following joint replacement surgery* Code: * Start Date: TueFeb 24 00:00:00 EDT 2021 * End Date: * Text: * Presence of right artificial hip joint* Code: * Start Date: TueFeb 24 00:00:00 EDT 2021 * End Date: * Text: * Chronic obstructive pulmonary disease, unspecified* Code: * Start Date: TueFeb 24 00:00:00 EDT 2021 * End Date: * Text: * Other intervertebral disc degeneration, lumbar region* Code: * Start Date: TueFeb 24 00:00:00 EDT 2021 * End Date: * Text: * Spondylolisthesis, lumbar region* Code: * Start Date: TueFeb 24 00:00:00 EDT 2021 * End Date: * Text: * Unilateral primary osteoarthritis, left hip* Code: * Start Date: TueFeb 24 00:00:00 EDT 2021 * End Date: * Text: * Cervicalgia* Code: * Start Date: TueFeb 24 00:00:00 EDT 2021 * End Date: * Text: * Arthrodesis status* Code: * Start Date: TueFeb 24 00:00:00 EDT 2021 * End Date: * Text: * Major depressive disorder, single episode, unspecified* Code: * Start Date: TueFeb 24 00:00:00 EDT 2021 * End Date: * Text: * Generalized anxiety disorder* Code: * Start Date: TueFeb 24 00:00:00 EDT 2021 * End Date: * Text: * Vitamin D deficiency, unspecified* Code: * Start Date: TueFeb 24 00:00:00 EDT 2021 * End Date: * Text: * Gastro-esophageal reflux disease without esophagitis* Code: * Start Date: TueFeb 24 00:00:00 EDT 2021 * End Date: * Text: * Slow transit constipation* Code: * Start Date: TueFeb 24 00:00:00 EDT 2021 * End Date: * Text: * Hypomagnesemia* Code: * Start Date: TueFeb 24 00:00:00 EDT 2021 * End Date: * Text: * Acquired absence of bilateral breasts and nipples* Code: * Start Date: TueFeb 24 00:00:00 EDT 2021 * End Date: * Text: * FDC (current) use of aspirin* Code: * Start Date: TueFeb 24 00:00:00 EDT 2021 * End Date: * Text: * Displaced fracture of greater trochanter of right femur, subsequent encounter for closed fracture with routine healing* Code: * Start Date: TueMar 05 00:00:00 EDT 2021 * End Date: * Text: * Displaced fracture of lesser trochanter of right femur, subsequent encounter for closed fracture with routine healing* Code: * Start Date: TueMar 05 00:00:00 EDT 2021 * End Date: * Text: * Periprosthetic fracture around internal prosthetic right hip joint, subsequent encounter* Code: * Start Date: TueMar 05 00:00:00 EDT 2021 * End Date: * Text: * Fall on same level from slipping, tripping and stumbling with subsequent striking against other object, subsequent encounter* Code: * Start Date: TueMar 05 00:00:00 EDT 2021 * End Date: * Text: * Presence of other bone and tendon implants* Code: * Start Date: TueMar 05 00:00:00 EDT 2021 * End Date: * Text: * Acute posthemorrhagic anemia* Code: * Start Date: TueMar 05 00:00:00 EDT 2021 * End Date: * Text: * Acute kidney failure, unspecified* Code: * Start Date: TueMar 05 00:00:00 EDT 2021 * End Date: * Text: * Diffuse cystic mastopathy of unspecified breast* Code: * Start Date: TueMar 05 00:00:00 EDT 2021 * End Date: * Text: * Essential (primary) hypertension* Code: * Start Date: TueMar 05 00:00:00 EDT 2021 * End Date: * Text: * Mixed hyperlipidemia* Code: * Start Date: TueMar 05 00:00:00 EDT 2021 * End Date: * Text: * Candidal stomatitis* Code: * Start Date: TueMar 05 00:00:00 EDT 2021 * End Date: * Text: * Insomnia due to other mental disorder* Code: * Start Date: TueMar 05 00:00:00 EDT 2021 * End Date: * Text: * Delirium due to known physiological condition* Code: * Start Date: TueMar 05 00:00:00 EDT 2021 * End Date: * Text: * Type 2 diabetes mellitus without complications* Code: * Start Date: TueMar 05 00:00:00 EDT 2021 * End Date: * Text: * Unspecified osteoarthritis, unspecified site* Code: * Start Date: TueMar 05 00:00:00 EDT 2021 * End Date: * Text: * 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
--- OUTSIDE RECORDS SUMMARY | 2025-02-15 14:22 | XMS_ITS | Clinical Summary ---
Author Organization [facility] Address [facility] [place] [address] Care Team Providers Care Pipe Recovery Specialist Name Role Phone Johan Loredo DO Primary Care Provider Allergies Active Allergy Reactions Criticality Noted Date Comments Amoxicillin Other (see comment) Low 10/18/2016 Can take the first round [...] Latex Unknown 02/09/2018 Sulfa Antibiotics Other (see comment) 6 Sulfa scares me Sulfa scares me Medications albuterol sulfate HFA 108 (90 Base) MCG/ACT inhaler albuterol sulfate HFA 90 mcg/actuation aerosol inhaler INHALE 2 PUFFS BY MOUTH EVERY 6 HOURS NEEDED 0 Active atorvastatin 20 MG tablet atorvastatin 20 mg tablet TAKE 1 TABLET BY MOUTH ONCE DAILY AT BEDTIME Active calcium carbonate 1250 (500 Ca) MG chewable tablet Acti ve vitamin D3, cholecalciferol , (CHOLECALCIFERO L) 1000 UNIT Tab tablet Active clonazePAM 0.5 MG tablet clonazepam 0.5 mg tablet Active escitalopram 5 MG tablet escitalopram 5 mg tablet Active magnesium oxide 400 MG tablet Active Multiple Vitamin (MULTI-VITAMIN) tablet Active nebivolol (BYSTOLIC) 5 MG tablet Bystolic 5 mg tablet TAKE 1 TABLET BY MOUTH ONCE DAILY Active omeprazole 20 MG capsule omeprazole 20 mg capsule,delayed release TAKE 1 CAPSULE BY MOUTH ONCE DAILY Active zolpidem 5 MG tablet zolpidem 5 mg tablet Active tiotropium (SPIRIVA RESPIMAT) 1.25 MCG/ACT inhaler (SPIRIVA RESPIMAT) Inhale 2 puffs into the lungs daily. Please provide assembled. Active vitamin C 250 MG tablet Take 250 mg by mouth daily. Active Active Problems No known active problems Family History Medical History Relation Comments Arthritis Father Diabetes Father Cancer Mother Stomach cancer Paternal Grandmother Melanoma Sister Relation Status Comments Father Mother Paternal Grandmother Sister Social History Tobacco Use Types Packs/Day Years Used Date Smoking Tobacco: Former Cigarettes Q uit: 1989 Smokeless Tobacco: Never Alcohol Use Standard Drinks/Week Comments Not Currently 0 (1 standard drink = 0.6 oz pur e alcohol) Comments Unknown Sex and Gender Information Value Date Recorded Sex Assigned at Not on file Legal Sex Female 10:19 AM CDT Gender Identity Not on file Sexual Orientation Not on file Last Filed Vital Signs Vital Sign Reading Time Taken Comments Blood Pressure 144/64 03/27/2021 2:30 PM CDT Pulse 67 03/27/2021 2:30 PM CDT Temperature 36.7 C (98.1 F) 03/27/2021 2:30 PM CDT Respiratory Rate 16 03/27/2021 2:30 PM CDT Oxygen Saturation 95% 03/27/2021 2:30 PM CDT Inhaled Oxygen Concentration - - Weight 63.5 kg (140 lb) 03/27/2021 2:30 PM CDT Height 162.6 cm (5' 4 ) 03/27/2021 2:30 PM CDT Body Mass Index 24.03 03/27/2021 2:30 PM CDT Plan of Treatment Health Maintenance Due Date Last Done Comments DTaP, Tdap and Td Vaccines ( 1 - Tdap) 1961 Zoster Vaccines (1 of 2) 1992 Annual Medicare Wellness Visit 2007 Dexa Scan (General) 2007 RSV Immunization or 60+ Years (1 - 1-dose 75+ series) 2017 COVID-19 Vaccine (2023-2 5 season) 2024 02/01/2021, 01/06/2021 Pneumococcal Vaccine: 65+ Years Completed 08/23/2019, 07/27/2016 Meningococcal B Vaccine Aged Out No l onger eligible based on patient's age to complete this topic Meningococcal Vaccine Aged Out No marvel brenda eligible based on patient's age to complete this topic RSV Immunizations Under 20 Months Aged Out No longer eligible b ased on patient's age to complete this topic Insurance MED [facility] MEDICARE Care Teams Pipe Recovery Specialist Relationship Specialty Start Date End Date Johan Loredo DO [address] [facility] [address] [place] [address] PCP - General INTERNAL MEDICINE 03/27/21
--- OUTSIDE RECORDS SUMMARY | 2025-02-15 14:22 | XMS_ITS | Encounter Summary ---
Author Organization [facility] Address [address] [place] [address] Phone Care Team Providers Care Water Valve Repairer Name Role Phone SalenamarquezJohanian Primary Care Provider Reason for Visit * Reason Comments Medication Refill Encounter Details Date Type Department Care Team (Late st Contact Info) Description 07/06/2022 Refill [facility] - Gastroenterology [facility] [address] [place] [id number] Deandra Epstein PAC [address] [place] [address] Medication Refill Social History Tobacco Use Types Packs/Day Years Used Date Smoking Tobacco: Former Smokeless Tobacco: Former Alcohol Use Standard Drinks/Week Comments Not Currently 0 (1 standard drink = 0.6 oz pur e alcohol) Sexually Active Control Partners Comments Not Currently Comments No Sex and Gender Information Value Date Recorded Sex Assigned at Not on file Legal Sex Female 11:05 PM CDT Gender Identity Not on file Sexual Orientation Not on file documented as of this encounter Miscellaneous Notes * Telephone Encounter - Deandra Epstein PAC - 07/06/2022 3:34 PM CDT Refill inappropriate * Telephone Encounter - Della Almanza RN - 07/06/2022 3:23 PM CDT Pharmacy requesting refill of: Requested Prescriptions Pending Prescriptions Disp Refills ??? pantoprazole (PROTONIX) 20 MG Tablet Delayed Response [Pharmacy Med Name: Pantoprazole Sodium 20 MG Oral Tablet Delayed Release] 90 Tablet 0 Sig: Take 1 tablet by mouth once daily Last fill: 12/16/2020 Patients last OV with GI: 12/16/2020 Next Office Visit with GI: None scheduled. No EGD path report or OR note noted per chart review. Pantoprazole order pended, please review. documented in this encounter Plan of Treatment Not on file documented as of this encounter Visit Diagnoses Diagnosis Gastroesophageal reflux disease, unspecified whether esophagitis present documented in this encounter Care Teams Water Valve Repairer Relationship Specialty Start Date End Date Johan Loredo DO [facility] [place] [address] PCP - General Internal Medicine 11/20/20 documented as of this encounter
--- OUTSIDE RECORDS SUMMARY | 2025-02-15 14:23 | XMS_ITS | Continuity of Care Document ---
Author Organization [facility] Address [address] [place] [address] [address] [place] [address] Phone Care Team Providers Care Metal Furniture Repairer Name Role Phone Markell Alarcon Unavailable Unavailable Procedures Procedure Date Office/outpatient Visit, Est Eye Exam & Treatment Refraction Eye Exam & Treatment Refraction Eye Exam & Treatment Eye Exam & Treatment Refraction Advance Directives Directive Yes / No Effective Date File Name No Information Encounters Encounter Description Practice Location Reason(s) For Visit Diagnoses Date Provider Providers Copied on Encounter Office/outpat ient Visit, Est [facility], [address] [place] [address] [address], [place], [place], [id number], tel:[phone] [facility] No Information Sep- 3-201 0 Agnes Guillaume. [address] , [address], [place], [place], [facility], . tel:[phone] [facility], [address] [place] [address] [address], [place], [place], [id number], [place] tel:[phone] [facility] No Information March-0 4-201 0 Rebeca Yeager. [address] , [address], [place], [place], [facility], . tel:[phone] [facility], [address] [place] [address] [address], [place], [place], [id number], tel:[phone] [facility] No Information Feb-1 4-200 9 Rebeca Shepherd [address] [facility] , [address], [place], [address], [place]. tel:[phone] [facility], [address], [place], [place], [id number], tel:[phone] [facility] No Information Feb-0 1-200 8 Rebeca Shepherd [address] [facility] [facility] , [address], [place], [place], [facility], [place]. tel:[phone] [facility], [address], [place], [place], [id number], [place] tel:[phone] [facility] No Information Jan-3 0-200 7 Rebeca Yeager. [address] [facility] [address] , [address], [place], [address], [place]. tel:[phone] Family History Family Member Type Diagnosis Age At Onset No Information Payers Payer name Insurance type Covered republican ID Authoriza tisada(s) [place] [id number] [facility] [id number] Social History Type Description Quantity Date Captured Comments Sex Female Smoking Status No Information Chief Complaint And Reason For Visit No Information Reason For Referral Reason For Referral No Information History Of Present Illness Encounter Date Complaint History Of Prese nt Illness No Information Functional Status Date Functional Assessmen t No Information Instructions Date Instruction Additional Infor mation No Information Assessments Type Assessment Date No Information Patient Care Teams Name Effective Dates (start - stop) Status Members No Information
--- OUTSIDE RECORDS SUMMARY | 2025-02-15 14:23 | XMS_ITS | Referral Summary ---
Author Organization [facility] Address [address] [place] [address] Care Team Providers Care Patient Financial Advocate Name Role Phone Johan Loredo DO Primary Care Provider [phone] Stanford Meyers MD Unavailable [phone] Encounters Date Type Department Care Team Description 02/02/2025 5:45 PM CDT Office Visit [facility] [address] [address] Coco Solano PA Tympanic membrane perforation, right (Primary Dx) from Last 3 Months Allergies Active Allergy Reactions Criticality Noted Date Comments Amoxicillin Other (See comments) Low 10/18/2016 Can take the first round [...] rash and itching Latex Unknown 02/09/2018 Sulfa (Sulfonamide Antibiotics) Other (See comments) Low 10/18/2016 Sulfa scares me Sulfa scares me Sulfa scares me Sulfasalazine Other (See comments) Low 10/18/2016 Sulfa scares me Unclassified Drug Other (See comments) Low 10/18/20 16 Sulfa scares me Medications atorvastatin (LIPITOR) 20 mg tablet TK 1 T PO QD 0 06/19/201 8 Active omeprazole (PriLOSEC) 20 mg capsule Active calcium carbonate/vitami n D3 (CALCIUM 500 + D, D3, ORAL) Take by mouth Active ProAir HFA 90 mcg/actuation inhaler 0 Active calcium carbonate (TUMS) 500 mg calcium (200 mg of elemental calcium) chewable tablet Take by mouth Active OLANZapine (ZyPREXA) 2.5 mg tablet Take 1 tablet (2.5 mg total) by mouth 2 (two) times a day as needed (agitation) 2 Active clonazePAM (KlonoPIN) 0.5 mg tablet Take 1 tablet (0.5 mg total) by mouth daily 2 Active fluticasone propionate (FLONASE) 50 mcg/actuation nasal spray 2 Active nebivoloL (BYSTOLIC) 5 mg tablet Take 1 tablet (5 mg total) by mouth daily 2 Active QUEtiapine (SEROquel) 25 mg tablet 2 Active Incruse Ellipta 62.5 mcg/actuation blister with device 2 Active eszopiclone (LUNESTA) 2 mg tablet Take 1 tablet (2 mg total) by mouth nightly at bedtime. [address] (VOLTAREN) 50 mg EC tablet Take 1 tablet (50 mg total) by mouth 2 (two) times a day 3 Active escitalopram (LEXAPRO) 5 mg tablet Take 1 tablet (5 mg total) by mouth daily 4 Active loratadine (CLARITIN) 10 mg tablet Take 1 tablet (10 mg total) by mouth daily 4 Active azithromycin (ZITHROMAX) 250 mg tabletIndication s:COPD with acute exacerbation (HCC) Take 2 tablets the first day, then 1 tablet daily for 4 days. 6 tablet 4 Active Additional Information Patient not taking.Reported on 02/02/2025 benzonatate (TESSALON) 200 mg capsuleIndicatio ns:COPD with acute exacerbation (HCC) Take 1 capsule (200 mg total) by mouth 3 (three) times a day as needed for cough 30 capsule 4 Active Additional Information Patient not taking.Reported on 02/02/2025 Active Problems Problem Noted Date Diagnosed Date Closed nondisplaced fracture of lateral malleolus of left fibula 10/12/2023 Surgical wound dehiscence, subsequent encounter 04/27/2022 Soft tissue infection 04/14/2022 Assessment & Plan (04/14/2022 11:50 AM CDT): Pt 81 year old woman with ~2 month old revised R JOSSELINE, presenting with R hip purulent drainage of the surgical site with minimal signs/symptoms of deeper infection with negative blood cultures x 3. Now s/p I&D and superficial purulence seen with intact fascia and no deeper involvement, OR cultures growing MRSA. In summary, superficial surgical wound infection with MRSA. Recs: -Given pt desire to leave prior to full organism sensitivities returning, would start her on PO doxycycline 100mg PO BID for 14 days, given hospital antibiogram highly likely will be effective (94% sensitivity on hospital antibiogram), will followup sensitivities to ensure this ends up being the case. -Pt counseled on side effects of doxy and ways to reduce them (sun sensitivity, esophagitis) as well as interaction with multivitamins/dairy. -Unless wound does not heal properly or additional concerning signs, pt should not require additional followup by ID. Please instruct patient to contact ID clinic to set up a follow up appointment if that is required. -ID signing off at this time. Surgical wound dehiscence, initial encounter 02/2022 Periprosthetic fracture arou nd internal prosthetic right hip joint 03/24/2022 Aftercare following right hip joint replacement surgery 03/10/2022 Acute pain due to trauma 03/01/2022 SUSAN (acute kidney injury) 03/01/2022 Leukocytosis 03/01/2022 ABLA (acute blood loss anemia) 03/01/2022 Femur fracture, right 02/28/2022 Vitamin D deficiency 11/26/2021 Assessment & Plan (08/19/2022 10:32 AM CDT): Chronic stable problem, no changes. Assessment & Plan (11/26/2021 4:30 PM TANK BUILDER HELPER): Will request vitamin-D levels and will treat accordingly Osteopenia of multiple sites 11/26/2021 Assessment & Plan (08/19/2022 10:39 AM CDT): Chronic problem, with recent dontrell-prosthetic fracture after a fall. She is on calcium and D and her PCP is managing her bone loss plan. She prefers not to take medications. Assessment & Plan (11/26/2021 4:41 PM TANK BUILDER HELPER): Mild, probably multifactorial Importance of calcium and vitamin-D intake was discussed He does take calcium twice a day I have requested vitamin-D level to assess if there is need to increase the dose of she is currently taking Trochanteric bursitis of left hip 06/25/2019 Primary osteoarthritis of left hip 06/25/2019 Iliotibial band syndrome of left side 06/25/2019 Subclinical hyperthyroidism 06/11/2019 Assessment & Plan (02/24/2023 4:16 PM CDT): Update TFTs Again the patient has been reluctant to radioactive iodine, if this waswas indicated and also had allergic eaction to Tapazole, unlikely to take any other medications As long as free T4 and free T3 stay within normal limits, this can be continue be monitored. I will be glad to see her patient again at Aneudy Loredo's discretion Assessment & Plan (08/19/2022 10:39 AM CDT): Chronic problem, unknown status. Update labs today. We reviewed again hyperthyroidism causes, and monitoring vs intervention. Will call her with results. Assessment & Plan (11/26/2021 4:42 PM TANK BUILDER HELPER): Patient with longstanding history of subclinical hyperthyroidism, never going into full-blown hyperthyroidism with symptoms unlikely related to this condition. I have requested to recheck thyroid function tests including TSI As long as the free T4 and free T3 stay normal and TSH is also stable I will not attend any more pharmacological treatment. The patient is not very keen into radioactive iodine and disease this probably is not clearly indicated Anxiety 06/11/2019 Hyperlipidemia 06/11/2019 Chronic obstructive pulmonary disease 06/11/2019 Osteoporosis 06/11/2019 Gastroesophageal reflux disease 06/11/2019 Arthritis of left hip 05/16/2019 Hip pain, acute, left 05/15/2019 Acute left-sided low back pain without sciatica 09/11/2018 Spondylolisthesis of lumbar region-L4 on L5 grad e 1 09/11/2018 DDD (degenerative disc disease), lumbar-severe L 4-5 level 09/11/2018 Status post cervical discectomy 07/24/2018 Cervical disc disorder with myelopathy of mid-cervical region 02/09/2018 Hypertensive disorder 02/09/2018 COPD (chronic obstructive pulmonary disease) (CM S/HCC) 02/09/2018 Neck pain 02/08/2018 Resolved Problems Problem Noted Date Diagnosed Date Resolved Date Primary osteoarthritis of right hip 01/28/2022 03/10/2022 Overview (01/28/2022): Added automatically from request for surgery [id number] Immunizations Immunization Administration Dates Next Due Influenza, Quadrivalent, Hig h Dose, Preservative Free, Intrr 07/24/2021,07/07/2020 Influenza, Trivalent, High D ose, Split, Preservative Free, Intramuscular 07/07/2020,08/07/2019,08/01/2018,07/28,07/27/2016,08/05/2015,07/18/2014 Influenza, Trivalent, IM (MDV) 08/21/2013 Influenza, Trivalent, Preser vative Free, Intramuscular 08/07/2017 Influenza, Unspecified 08/21/2013 Pneumococcal Conjugate PCV 13 07/27/2016 Pneumococcal Polysaccharide PPV23 08/23/2019 Social History Tobacco Use Types Packs/Day Years Used Date Smoking Tobacco: Former Cigarettes 1 20 1 970 - 1989 Smokeless Tobacco: Former Tobacco Cessation:Counseling Given: Not Answered Alcohol Use Standard Drinks/Week Comments Yes 0 (1 standard drink = 0.6 oz pur e alcohol) Social Connection and Isolat ion Panel [NHANES] Answer Date Recorded In a typical week, how many times do you talk on the phone with family, friends, or neighbors? Three times a week 04/15/2022 How often do you get togethe r with friends or relatives? Twice a week 04/15/2022 How often do you attend [facility] or alevism services? More than 4 times per year 04/15/2022 Do you belong to any clubs o r organizations such as christianity groups, unions, fraternal or athletic groups, or school groups? No 04/15/2022 How often do you attend meet ings of the clubs or organizations you belong to? Never 04/15/2022 Are you , , di vorced, , never , or living with a partner? 04/15/2022 AUDIT-C Answer Date Recorded Q1: How often do you have a drink containing alc ohol? Monthly or less 02/28/2022 Q2: How many drinks containi ng alcohol do you have on a typical day when you are drinking? 1 or 2 02/28/2022 Q3: How often do you have si x or more drinks on one occasion? Never 02/28/2022 Overall Financial Resource Strain (CARDIA) Answe r Date Recorded How hard is it for you to pa y for the very basics like food, housing, medical care, and heating? Not very hard 04/15/2022 PHQ-2 Answer Date Recorded PHQ-2 Total Score (If total score is 3 or more points, staff should administer the PHQ-9) 0 11/26/2021 Hunger Vital Sign Answer Date Recorded Within the past 12 months, y ou worried that your food would run out before you got the money to buy more. Never true 04/15/20 22 Within the past 12 months, t he food you bought just didn't last and you didn't have money to get more. Never true 04/15/2022 PRAPARE - Transportation Answer Date Re corded In the past 12 months, has l ack of transportation kept you from medical appointments or from getting medications? No 07/2022 In the past 12 months, has l ack of transportation kept you from meetings, work, or from getting things needed for daily living? No 04/15/2022 Housing Stability Vital Sign Answer Hal e Recorded In the last 12 months, was t here a time when you were not able to pay the mortgage or rent on time? No 04/15/2022 In the last 12 months, how many places have you lived? 1 04/15/2022 In the last 12 months, was t here a time when you did not have a steady place to sleep or slept in a alf (including now)? No 04/15/2022 Comments No Sex and Gender Information Value Date Recorded Sex Assigned at Not on file Legal Sex Female 9:47 AM TANK BUILDER HELPER Gender Identity Not on file Sexual Orientation Not on file Last Filed Vital Signs Vital Sign Reading Time Taken Comments Blood Pressure 152/74 02/02/2025 5:13 PM CDT Pulse 93 02/02/2025 5:13 PM CDT Temperature 36.9 C (98.4 F) 02/02/2025 5:13 PM CDT Respiratory Rate 18 02/02/2025 5:13 PM CDT Oxygen Saturation 95% 02/02/2025 5:13 PM CDT Inhaled Oxygen Concentration - - Weight 55.3 kg (122 lb) 02/02/2025 5:13 PM CDT Height 165.1 cm (5' 5 ) 02/02/2025 5:13 PM CDT Body Mass Index 20.3 02/02/2025 5:13 PM CDT Plan of Treatment Not on file Goals Goal Patient Goal Type Associated Problems Recent Progress Patient-Stated? Author [facility] On track( 018 1:52 PM TANK BUILDER HELPER) No Tarik Ugarte, ETHAN Note: Do gardening with minimal pain. Medical Devices Implanted Type Area Compliance Specialist Device Identifier Shelf Expiration Date Model / Serial / Lot [employer] [id number] Cove 50mm 32mm Hip Neutral Liner Acetabular Altrx Sterile Latex Free - [id number] Implanted:Qty: 1 on 02/18/2022 by Stanford Meyers MD at [facility] Right: Hip [employer] 10/06/2026 [id number] / / [id number] [employer] [id number] Cove 50mm Sector Hip Shell Acetabular Gription Sterile Latex Free - [id number] Implanted:Qty: 1 on 02/18/2022 by Stanford Meyers MD at [facility] Right: Hip [employer] 03/06/2031 [id number] / / [id number] [employer] Cove 6.5mm 35mm Acetabular Cancellous Screw Bone Sterile 1217-35-500 - [id number] Implanted:Qty: 1 on 02/18/2022 by Stanford Meyers MD at [facility] Right: Hip [employer] 01/05/2032 1217-35-500 / / [id number] [employer] [id number] Actis Collar Hip 4 High Offset Stem Femoral - [id number] Implanted:Qty: 1 on 02/18/2022 by Stanford Meyers MD at [facility] Right: Hip [employer] 03/06/2031 [id number] / / [id number] [employer] [id number] Articul/Roger 32mm Hip +5mm 10/20 Taper Head Femoral Biolox Delta Latex Free - [id number] Implanted:Qty: 1 on 02/18/2022 by Stanford Meyers MD at [facility] Right: Hip [employer] 07/07/2026 [id number] / / [id number] Trochanteric Reattachment Device W/Cables/Standar d-Ster Implanted:Qty: 1 on 02/28/2022 by Ildefonso Sheridan MD at [facility] Right: Hip Synthes I 08/06/2024 [id number] / / [id number] Synthes 298.801.01s 1.7mm 750mm Crimp Cerclage Cable Orthopedic Stainless Steel - [id number] Implanted:Qty: 3 on 02/28/2022 by Ildefonso Sheridan MD at [facility] Right: Hip Synthes I [id number] 12/07/2026 298.801.01S / / [id number] [employer] Reclaim 17mm 140mm 20 Grit Blast Surface Finish Hip Distal [id number] - [id number] Implanted:Qty: 1 on 02/28/2022 by Ildefonso Sheridan MD at [facility] Right: Hip [employer] [id number] 09/06/[id number] / / [id number] [employer] [id number] Reclaim Articul/Roger 20mm 85mm 20 Grit Blast Surface Finish - [id number] Implanted:Qty: 1 on 02/28/2022 by Ildefonso Sheridan MD at [facility] Right: Hip [employer] [id number] 07/07/[id number] / / [id number] [employer] [id number] Articul/Roger 32mm Hip +1mm 10/20 Taper Head Femoral [employer] Delta Latex Free - [id number] Implanted:Qty: 1 on 02/28/2022 by Ildefonso Sheridan MD at [facility] Right: Hip [employer] [id number] 09/06/2026 [id number] / / [id number] Insurance [employer] MEDICARE [employer] MEDICARE ADVANTAGE [employer] Advance Directives For more information, please contact: [phone] Documents on File Type Date Recorded Patient Rn Oncology Expl anation ADVANCE DIRECTIVE 03/08/2022 11:27 AM POWER OF COMBATANT DIVER OFFICER-MEDICAL ADVANCE DIRECTIVE 03/01/2022 1:56 PM Power of Software Quality Specialist-Medical ADVANCE DIRECTIVE 02/25/2022 8:48 AM Power of Software Quality Specialist-Medical * Full Code (Latest Code Status on File) Date Activated Date Inactivated Comments 04/10/2022 5:21 AM 04/14/2022 8:50 PM * Full Code Date Activated Date Inactivated Comments 02/28/2022 11:08 PM 03/05/2022 6:41 PM * Full Code Date Activated Date Inactivated Comments 02/28/2022 9:46 PM 02/28/2022 11:08 PM * Full Code Date Activated Date Inactivated Comments 02/18/2022 2:17 PM 02/24/2022 10:34 PM Care Teams Patient Financial Advocate Relationship Specialty Start Date End Date Johan Loredo DO PCP - General Internal Medicine 05/04/18 Stanford Meyers MD Surgeon Orthopedic Surgery 02/19/22
--- OUTSIDE RECORDS SUMMARY | 2025-02-15 14:23 | XMS_ITS | Clinical Summary ---
Author Organization [facility] Address [address] [place] [id number] Care Team Providers Care Automotive Drivability Technician Name Role Phone Johan Loredo DO Primary Care Provider [phone] Stanford Meyers MD Unavailable [phone] Allergies Active Allergy Reactions Criticality Noted Date [...] tablet TK 1 T PO QD 0 8 Active omeprazole (PriLOSEC) 20 mg capsule [...] changes. Assessment & Plan (11/26/2021 4:30 PM CANVAS CUTTER MACHINE): Will request vitamin-D levels and will treat accordingly Osteopenia of multiple sites 11/26/2021 Assessment & Plan (08/19/2022 10:39 AM CDT): Chronic problem, with recent dontrell-prosthetic fracture after a fall. She is on calcium and D and her PCP is managing her bone loss plan. She prefers not to take medications. Assessment & Plan (11/26/2021 4:41 PM CANVAS CUTTER MACHINE): Mild, probably multifactorial Importance of calcium and [...] results. Assessment & Plan (11/26/2021 4:42 PM CANVAS CUTTER MACHINE): Patient with longstanding history of subclinical hyperthyroidism, [...] (01/28/2022): Added automatically from request for surgery [id number] Encounters Date Type Department Care Team Description 02/02/2025 5:45 PM CDT Office Visit [facility] at [address] [address] Coco Solano PA Tympanic membrane perforation, right (Primary Dx) from Last 3 Months Immunizations Immunization Administration Dates Next Due Influenza, Quadrivalent, Hig h Dose, Preservative Free, Intrr 07/24/2021,07/07/2020 Influenza, Trivalent, High D ose, Split, Preservative Free, Intramuscular 07/07/2020,08/07/2019,08/01/2018,07/28,07/27/2016,08/05/2015,07/18/2014 Influenza, Trivalent, IM (MDV) 08/21/2013 Influenza, Trivalent, Preser vative Free, Intramuscular 08/07/2017 Influenza, Unspecified 08/21/2013 Pneumococcal Conjugate PCV 13 07/27/2016 Pneumococcal Polysaccharide PPV23 08/23/2019 Surgical History Surgery Date Site/Laterality Comments [place] LAMINECTOMY W/O FFD 11/08 VERT SEG LUMBAR Laminectomy Decompressive Up To Two Lumbar Segments - (Added by TW Conv) MASTECTOMY Mastectomy Bilateral - (Added by TW Conv) SPINE SURGERY cevical NECK SURGERY 11/07/2017 - 11/06/2018 FL FLUORO GUIDED INJECTION HIP LEFT 07/04/2019 Left FL FLUORO GUIDED INJECTION HIP LEFT 05/23/2020 Left Medical History Medical History Date Comments Personal history of other me ntal and behavioral disorders History of depression - (Add ed by TW Conv) Personal history of transien t ischemic attack (TIA), and cerebral infarction without residual deficits History of transient cerebra l ischemia - (Added by TW Conv) Arthritis GERD (gastroesophageal reflux disease) Depression Anxiety Hypertension treted by PCP Stroke (HCC) Hypercholesteremia Thyroid disease Gastric reflux Kidney stone Migraines PONV (postoperative nausea and vomiting) Motion sickness 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) Family History Medical History Relation Name Comments Arthritis Father Family history of arthritis - (Added by TW Conv) Diabetes Father Family history of diabetes mellitus - (Added by TW Conv) Heart disease Father Family history of cardiac disorder - (Added by TW Conv) Cancer Mother Family history of cancer - (Added by TW Conv) Alcohol abuse Other Hypertension Other Cancer Sister Family history of cancer - (Added by TW Conv) Relation Name Status Comments Father Mother Other Sister Social History Tobacco Use Types Packs/Day Years Used Date Smoking Tobacco: Former Cigarettes 1989 Smokeless Tobacco: Former Tobacco Cessation:Counseling Given: [...] week 04/15/2022 How often do you attend chur ch or church services? More than 4 times per year 04/15/2022 Do you belong to any clubs o r organizations such as denominational groups, unions, fraternal or athletic groups, or [...] place to sleep or slept in a mcfp (including now)? No 04/15/2022 Comments No Sex and Gender Information Value Date Recorded Sex Assigned at Not on file Legal Sex Female 9:47 AM CANVAS CUTTER MACHINE Gender Identity Not on file Sexual Orientation Not on file Obstetrics History Last Filed Vital Signs Vital Sign Reading [...] 02/02/2025 5:13 PM CDT Plan of Treatment Health Maintenance Due Date Last Done Comments Osteoporosis Screening-Bone Density Scan 1942 DTaP/Tdap/Td Vaccine (1 - Tdap) 1953 Hepatitis B Screening 1960 Zoster Vaccine (1 of 2) 1992 Well Visit 65+ 2007 Depression Screening 11/26/2022 11/26/2021, 09/11/2018, 09/11/2018 Fall Risk Assessment 04/14/2023 04/14/2022 Covid-19 Vaccine (4 - 2023-2 5 season) 2024 08/29/2021, 02/01/2021, 01/06/2021 Influenza Vaccine (Season Ended) 2025 07/24/2021, 07/07/2020, 07/07/2020, Additional history exists Pneumococcal vaccine 65+ Completed 08/23/2019, 07/09 Goals Goal Patient Goal Type Associated Problems Recent Progress Patient-Stated? Author [facility] On track( 018 1:52 PM CANVAS CUTTER MACHINE) Tarik Delgado, RN Note: Do gardening with minimal pain. Medical Devices Implanted Type Area Airbrush Painter Device Identifier Shelf Expiration Date Model / Serial / Lot [employer] [id number] Ellis 50mm 32mm Hip Neutral Liner Acetabular Altrx Sterile Latex Free - [id number] Implanted:Qty: 1 on 02/18/2022 by Stanford Meyers MD at [facility] Right: Hip [employer] 10/06/2026 [id number] / / [id number] [employer] [id number] Ellis 50mm Sector Hip Shell Acetabular Gription Sterile Latex Free - [id number] Implanted:Qty: 1 on 02/18/2022 by Stanford Meyers MD at [facility] Right: Hip [employer] 03/06/2031 [id number] / / [id number] [employer] Ellis 6.5mm 35mm Acetabular Cancellous Screw Bone Sterile 1217-35-500 - [id number] Implanted:Qty: 1 on 02/18/2022 by Stanford Meyers MD at [facility] Right: Hip [employer] 01/05/2032 1217-35-500 / / [id number] [employer] [id number] Actis Collar Hip 4 High Offset Stem Femoral - [id number] Implanted:Qty: 1 on 02/18/2022 by Stanford Meyers MD at [facility] Right: Hip [employer] 03/06/2031 [id number] / / [id number] Dep[employer] [id number] Articul/Roger 32mm Hip +5mm 10/20 Taper Head Femoral Biolox Delta Latex Free - [id number] Implanted:Qty: 1 on 02/18/2022 by Stanford Meyers MD at [facility] Right: Hip [employer] 07/07/2026 [id number] / / [id number] Trochanteric Reattachment Device W/Cables/Standar d-Ster Implanted:Qty: 1 on 02/28/2022 by Ildefonso Sheridan MD at [facility] Right: Hip Synthes I 08/06/2024 [id number] / / [id number] Synthes 298.801.01s 1.7mm 750mm Crimp Cerclage Cable Orthopedic Stainless Steel - [id number] Implanted:Qty: 3 on 02/28/2022 by Ildefonso Sheridan MD at [facility] Right: Hip Synthes I [id number] 12/07/2026 298.801.01S / / [id number] [employer] Reclaim 17mm 140mm 20 Grit Blast Surface Finish Hip Distal [id number] - [id number] Implanted:Qty: 1 on 02/28/2022 by Ildefonso Sheridan MD at [facility] Right: Hip [employer] [id number] 09/06/[id number] / / [id number] [employer] [id number] Reclaim Articul/Roger 20mm 85mm 20 Grit Blast Surface Finish - [id number] Implanted:Qty: 1 on 02/28/2022 by Ildefonso Sheridan MD at [facility] Right: Hip [employer] [id number] 07/07/[id number] / / [id number] [employer] [id number] Articul/Roger 32mm Hip +1mm 10/20 Taper Head Femoral Biolox Delta Latex Free - [id number] Implanted:Qty: 1 on 02/28/2022 by Ildefonso Sheridan MD at [facility] Right: Hip [employer] [id number] 09/06/2026 [id number] / / [id number] Insurance AETNA MEDICARE AETNA MEDICARE [facility] MEDICARE ADVANTAGE [facility] MEDICARE Advance Directives For more information, please contact: [phone] Documents on File Type Date Recorded Patient Machine Setter Sheet Metal Expl anation ADVANCE DIRECTIVE 03/08/2022 11:27 AM POWER OF DIABETES SOLUTIONS SPECIALIST-MEDICAL ADVANCE DIRECTIVE 03/01/2022 1:56 PM Power of Sail Repairer-Medical ADVANCE DIRECTIVE 02/25/2022 8:48 AM Power of Sail Repairer-Medical * Full Code (Latest Code Status on File) Date Activated Date Inactivated Comments 04/10/2022 5:21 AM 04/14/2022 8:50 PM * Full Code Date Activated Date Inactivated Comments 02/28/2022 11:08 PM 03/05/2022 6:41 PM * Full Code Date Activated Date Inactivated Comments 02/28/2022 9:46 PM 02/28/2022 11:08 PM * Full Code Date Activated Date Inactivated Comments 02/18/2022 2:17 PM 02/24/2022 10:34 PM Care Teams Automotive Drivability Technician Relationship Specialty Start Date End Date Johan Loredo DO PCP - General Internal Medicine 05/04/18 Stanford Meyers MD Surgeon Orthopedic Surgery 02/19/22
[2025-02-15 18:27] LABS: Basophils Percent Auto 0.8 % (0.2-1.2); Eosinophils Absolute Auto 0.3 K/mm3 (0-0.3); Immature Granulocyte Absolute 0.01 K/mm3 (0.00-0.031); Immature Granulocyte Percent A 0.2 % (0-0.5); Lymphocytes Percent Auto 21.2 % (18.3-44.2); Mean Corpuscular HGB Conc 33.3 g/dl (32-36); Mean Platelet Volume 10.4 fl (7.4-10.4); Monocytes Absolute Auto 0.3 K/mm3 (0.1-0.6); Monocytes Percent Auto 6.3 % (2.6-8.5); Neutrophils Absolute Auto 3.4 K/mm3 (1.3-6.7); Neutrophils Percent Auto 65.5 % (45.5-73.1); Platelet Count Result 256 k/mm3 (150-375); Red Blood Count 3.94 M/mm3 (4.2-5.4); Red Cell Distribution Width 14.6 % (11.5-14.5); White Blood Count 5.2 K/mm3 (4.5-10.0)
[2025-02-15 18:29] LABS: Hemoglobin A1C 6.2 % (<5.7)
[2025-02-15 18:43] LABS: Alanine Aminotransferase 15 U/L (6-35); Albumin Level 4.1 g/dL (3.5-5.1); Alkaline Phosphatase 125 U/L (38-126); Anion Gap 10 mmol/L (4-12); Aspartate Amino Transferase 23 U/L (14-36); Bilirubin,Total 0.3 mg/dL (0.2-1.3); Blood Urea Nitrogen 19 mg/dL (7-17); Calcium 9.3 mg/dL (8.4-10.2); Carbon Dioxide 29 mmol/L (22-30); Chloride 103 mmol/L (98-107); Estimated Glomerular Filt Rate 37; Glucose 127 mg/dL (65-110); Potassium 4.4 mmol/L (3.4-5.0); Sodium 142 mmol/L (137-145)
[2025-02-15 18:50] LABS: Vitamin D 25 Hydroxy 74.7 ng/mL
[2025-02-15 18:56] LABS: Creatinine Urine 91.8 mg/dL; Total Protein Urine Random 10 mg/dL; Ur Ttl Prot Creatinine Ratio 0.11 mg/mg (0-0.20)
== END 2025-02-15 14:20 | disposition home or self-care (01) ==
LOC: ANHGOSHLAB 14:20
PROVIDERS: Internal Medicine Nephrology; PCP Internal Medicine; Visit Provider Nurse Practitioner
DX: I12.9 Hypertensive chronic kidney disease with stage 1 through stage 4 chronic kidney disease, or unspecified chronic kidney disease (principal); E11.22 Type 2 diabetes mellitus with diabetic chronic kidney disease; N18.32 Chronic kidney disease, stage 3b; E78.2 Mixed hyperlipidemia; R79.89 Other specified abnormal findings of blood chemistry
CPT/HCPCS: 36415; 80053; 82306; 82570; 83036; 84156; 85025

== ENCOUNTER 2025-07-10 16:34 | Emergency (ER) | payer MEDICARE, SELFPAY ==
--- NOTE | ~2025-07-10 | XR_ITS ---
XR chest 2V 07/10/2025 17:22 Indication: Cough with dyspnea Procedure: 2 view chest Comparison: Comparison to multiple prior studies sequentially, with oldest reviewed study dated 11/17/2020. Findings: Heart size normal. No focal air space disease, pulmonary edema, pleural effusion or suspected pneumothorax. The lungs are hyperinflated which is consistent with, but not diagnostic of chronic obstructive pulmonary disease. There are bilateral calcified granulomas in the lungs. Impression: 1: No acute cardiopulmonary disease. Reviewed, dictated and finalized at location O. Impression: 1: No acute cardiopulmonary disease.
--- NOTE | 2025-07-10 16:38 | ECG_ITS ---
Test Date: 2025-07-10 16:54:38 Measurements Intervals [place] Rate: 99 P: 58 AR: 152 QRS: 74 QRSD: 88 T: 64 QT: 341 QTc: 438 Interpretive Statements SINUS RHYTHM SEPTAL MYOCARDIAL INFARCTION [40+ ms Q WAVE IN V1/V2], OF INDETERMINATE AGE ABNORMAL ECG No previous ECG available for comparison Electronically Signed On 07-10-2025 17:04:55 CDT by Rob Hallman M.D.
[2025-07-10 16:45] VITALS: BP 136/66; PULSE 99; RESP 20; TEMP 36.6; O2SAT 95
--- NOTE | 2025-07-10 16:55 | ED.SOB ---
HPI - SOB/Dyspnea General Chief Complaint: Shortness of Breath/Dyspnea Stated Complaint: SOB Time Seen by Provider: 07/10/25 16:40 Source: patient and RN notes reviewed Mode of arrival: ambulatory Limitations: no limitations History of Present Illness HPI Narrative: 84-year-old female presents to [facility] complaining of shortness of breath, cough, congestion for 1 week. Patient has a history of COPD. Patient says she has a mild case of COPD and does not use her inhaler regularly. Patient denies any chest pain. Says shortness of breath is worse with exertion. Patient denies any leg swelling or orthopnea. Patient reports a productive cough with increased sputum production the normal and thicker sputum production. Patient is any fevers, body aches, chills, nausea vomiting, jaw pain, diarrhea abdominal pain, or any other symptoms. Related Data Home Medications ?Medication ?Instructions ?Recorded ?Confirmed ?Last Taken ?Type calcium acetate(phosphat bind) 667 667 mg PO DAILY 11/12/19 07/10/25 Unknown History mg capsule cholecalciferol (vitamin D3) 75 3,000 unit PO DAILY 11/12/19 07/10/25 Unknown History mcg (3,000 unit) tablet magnesium 30 mg tablet 30 mg PO DAILY 11/12/19 07/10/25 Unknown History eszopiclone 2 mg tablet 2 mg PO HS 01/25/23 07/10/25 Unknown History acetaminophen 650 mg 650 mg PO Q8H 01/05/24 07/10/25 Unknown History tablet,extended release (Tylenol Arthritis Pain) ascorbic acid (vitamin C) 1,000 mg 1 g PO DAILY 01/10/24 07/10/25 Unknown History capsule budesonide 0.5 mg/2 mL suspension 0.5 mg inhalation DAILY 04/10/25 07/10/25 Unknown History for nebulization Allergies Allergy/AdvReac Type Severity Reaction Status Date / Time adhesive Allergy Unknown Itching Verified 07/10/25 16:40 Sulfa (Sulfonamide Allergy Unknown facial Verified 07/10/25 16:40 Antibiotics) swelling Review of Systems Review of Systems: CONSTITUTIONAL: Denies fever, chills, or sweats. EYES: Denies visual changes, redness, or discharge. ENT: Denies sore throat, or otalgia. Positive for congestion and rhinorrhea. CARDIOVASCULAR: Denies chest pain, palpitations, or edema. RESPIRATORY: Positive for cough and dyspnea with exertion. Denies dyspnea at rest. GASTROINTESTINAL: Denies abdominal pain, nausea, vomiting, or diarrhea. GENITOURINARY: Denies dysuria or hematuria. SKIN: Denies rash or itching. MUSCULOSKELETAL: Denies back pain, joint pain, or myalgia. NEUROLOGIC: Denies headache, numbness, or weakness. PSYCHIATRIC: Denies anxiety or depression. All other systems reviewed are negative, except as documented in HPI. [facility] Past Medical History Medical History Anemia Polyarthritis Abnormal EKG COPD (chronic obstructive pulmonary disease) Spinal stenosis Stroke Osteoarthritis Migraine Hyperlipidemia GERD (gastroesophageal reflux disease) Fibrocystic breast disease Cataract Hyperglycemia Bipolar 1 disorder Hyperthyroidism Age related osteoporosis Graves disease Chronic renal failure Type 2 diabetes mellitus Pulmonary emphysema Osteopenia of both hips Surgical History Surgical History History of hip replacement Right 06/2022 H/O mastectomy Double 1975 H/O breast surgery 2 Reconstructive H/O neck surgery Family History Family History Father Family history of osteoarthritis Diabetes mellitus Heart disease Sibling Family history of malignant melanoma, Onset Age: 60 Patient's sister is Mother Family history of malignant neoplasm of breast in first degree relative, Onset Age: 56 Patient's mother is Grandparent No problems noted. Other Depression Family history of alcoholism Family history of arthritis Family history of cardiovascular disease Family history of hearing loss Family history of obesity Social History Social History Smoking packs per day: 1 Smoking cigarettes per day: 20.0 Years smoked: 20 Smoking pack-years: 20.00 Smoking status: Former smoker Smoking end date: 11/07/02 Alcohol intake: current Alcohol use details: occasionally Substance use: never Substance use type: does not use Do You Feel Safe in your Home?: Yes Lack of Transportation: No Lack of Food: Never True Current Housing: I Have Housing Concerned About Future Housing: No Difficulty Paying Gas/Electric Bills: No Difficulty Paying for Meds: No Currently Unemployed: No Education: Master's Degree or Higher Difficulty w/ Childcare or Family Care: No Gender identity (if verbalized by the patient): Female Comments At the time of my signature, I reviewed and agree with the nursing past medical, surgical, social, and family history. There is no relevant family history pertinent to the patient complaint. Exam Narrative: GENERAL: This is a well-nourished, well-developed adult, in no apparent distress. They are non ill-appearing, nontoxic appearing. HEAD: normocephalic, atraumatic. EYES: Sclera clear/white. Conjunctiva normal. Vision is grossly intact. Extraocular movements intact EARS: External ears normal, auditory canals clear and without drainage, TMs normal without perforation. Hearing grossly intact. NOSE: External nose normal with no obvious nasal discharge, nasal turbinates erythematous, no rhinorrhea. THROAT: Mucous membranes moist, posterior pharynx erythematous. No exudate. Uvula midline. Postnasal drip present. NECK: Neck supple, non-tender without lymphadenopathy, masses or thyromegaly. CARDIOVASCULAR: Regular rate and rhythm without murmurs, gallops, or rubs. RESPIRATORY: In expiratory wheezes auscultated at the lower lobes.. Breath sounds equal bilaterally. No rales or rhonchi. Respiratory rate normal, respiratory effort nonlabored, no respiratory distress SKIN: warm, Dry, intact with no suspicious lesions or rash, good texture and turgor. NEURO: awake, alert, and oriented to person, place and time. There were no obvious focal neurologic abnormalities. EXTREMITIES: No joint tenderness, effusion, or edema noted. Course Course Emergency Course: Portions of this record may have been created with voice recognition software Level of Care: Express Care Visit Vital Signs Vital signs: Vital Signs Temperature 98 F 07/10/25 16:45 Pulse Rate 99 07/10/25 16:45 Respiratory Rate 07/10/25 16:45 Blood Pressure 136/66 07/10/25 16:45 Pulse Oximetry 95 07/10/25 16:45 Oxygen Delivery Room Air 07/10/25 16:45 Temperature 98 F 07/10/25 16:45 Pulse Rate 99 07/10/25 16:45 Respiratory Rate 20 07/10/25 16:45 Blood Pressure 136/66 07/10/25 16:45 Pulse Oximetry 95 07/10/25 16:45 Oxygen Delivery Room Air 07/10/25 16:45 Reviewed MDM - SOB/Dyspnea MDM Narrative Medical decision making narrative: Patient denies any chest pain. EKG sinus rhythm without any ischemic findings. EKG is reassuring. Chest x-ray shows no acute cardiopulmonary findings.. Given DuoNeb treatment for minor wheezing. Patient reports feeling better after treatment. Repeat auscultation shows improved aeration. Patient says she does not use her inhalers daily as she is supposed to. Shortness of breath likely related to COPD exacerbation. Patient has the cardinal signs of a COPD exacerbation increased sputum production, increased sputum thickness and worsening shortness of breath. Will prescribe a course of prednisone along with doxycycline. Discussed physical exam findings. Advised supportive measures and signs/symptoms to go to the ER. Pt is appropriate for outpt treatment and f/u. Differential Diagnosis Differential diagnosis: Likely acute exacerbation of chronic obstructive airways disease, congestive heart failure and community acquired pneumonia Imaging Data Radiologist's impression: ITS Impressions Chest X-Ray 07/10/25 17:25 Impression: 1: No acute cardiopulmonary disease. ECG Data EKG #1: Attestation: I personally reviewed and interpreted this ECG as follows: ECG completion date: 07/10/25 ECG completion time: 16:54 Prior ECG tracings: not available for review EKG Interpretation: normal rate, sinus rhythm, no ectopy, no ST changes, normal QRS, normal QT and NL axis Critical Care Time Critical Care Time Critical Care Time: No Discharge Plan Discharge Clinical Impression: Acute exacerbation of chronic obstructive pulmonary disease Patient Disposition: Home Condition: Stable Instructions: Antibiotic Form, COPD (Chronic Obstructive Pulmonary Disease) (ED) Additional Instructions: Your EKG is normal sinus rhythm. Her chest x-ray was negative for any pneumonia or any acute cardiopulmonary findings. Likely have a COPD exacerbation. Please use your inhalers as prescribed and directed. Take the prednisone as directed. Take doxycycline as directed and finish the course completely. Please wear sunscreen appear to be outside while taking doxycycline. Follow-up PCP in 3-5 days. If you develops worsening shortness of breath, chest pain, difficulty breathing, nausea, vomiting, fevers and, or any serious concerns please go to the ER immediately. Patient Language: Omani Prescriptions: New prednisone 20 mg tablet 40 mg PO DAILY 5 Days Qty: 10 0RF doxycycline monohydrate 100 mg capsule 100 mg PO BID 7 Days Qty: 14 0RF No Action eszopiclone 2 mg tablet 2 mg PO HS ascorbic acid (vitamin C) 1,000 mg capsule 1 g PO DAILY budesonide 0.5 mg/2 mL suspension for nebulization 0.5 mg inhalation DAILY calcium acetate(phosphat bind) 667 mg capsule 667 mg PO DAILY magnesium 30 mg tablet 30 mg PO DAILY cholecalciferol (vitamin D3) 3,000 unit tablet 3,000 unit PO DAILY acetaminophen [Tylenol Arthritis Pain] 650 mg tablet extended release 650 mg PO Q8H Anoro Ellipta 62.5-25 mcg/actuation blister with device 1 inh inhalation Q24H Qty: 60 5RF Rx Instructions: This replaces Incruse. atorvastatin 20 mg tablet 20 mg PO DAILY Qty: 90 1RF Rx Instructions: Take 1 tablet by mouth once daily Follow-up/Referrals: Johan Loredo DO [Primary Care Provider, Internal Medicine] Time of Disposition: 17:37
[2025-07-10] MEDS: IPRATROPIUM 0.5 MG/ALBUTEROL SULFATE 2.5 MG AMPUL.NEB 3 ML INHALATION (16:56)
== END 2025-07-10 17:41 | disposition home or self-care (01) ==
PROVIDERS: PCP Internal Medicine
DX: J44.1 Chronic obstructive pulmonary disease with (acute) exacerbation (principal); Z87.891 Personal history of nicotine dependence; E11.22 Type 2 diabetes mellitus with diabetic chronic kidney disease; N18.9 Chronic kidney disease, unspecified; M48.00 Spinal stenosis, site unspecified; M19.90 Unspecified osteoarthritis, unspecified site; K21.9 Gastro-esophageal reflux disease without esophagitis; E05.90 Thyrotoxicosis, unspecified without thyrotoxic crisis or storm; E05.00 Thyrotoxicosis with diffuse goiter without thyrotoxic crisis or storm; M85.88 Other specified disorders of bone density and structure, other site; Z96.641 Presence of right artificial hip joint; Z90.13 Acquired absence of bilateral breasts and nipples; Z86.73 Personal history of transient ischemic attack (TIA), and cerebral infarction without residual deficits
CPT/HCPCS: 71046; 93005; 94640; 99213; G0463

== ENCOUNTER 2025-07-25 13:17 | Emergency (ER) | payer MEDICARE, SELFPAY ==
--- NOTE | ~2025-07-25 | XR_ITS ---
Examination: XR chest 2V Clinical History: cough and congestion history of copd, sob x 1 week Comparison: 07/10/2025 Technique: PA and Lateral Findings: Cardiomediastinal silhouette normal size and configuration. Lungs clear. Mild hyperinflation and interstitial changes. Calcified granuloma left midlung No acute bony abnormality. Osteopenia. IMPRESSION: 1. No acute cardiopulmonary findings. Reviewed, dictated and finalized at location R.
[2025-07-25 13:33] VITALS: BP 162/72; PULSE 100; RESP 20; TEMP 37.6; O2SAT 95
--- NOTE | 2025-07-25 13:45 | ED.URI ---
HPI - URI/Sore Throat General Chief Complaint: Upper Respiratory Infection Stated Complaint: URI Symptoms Time Seen by Provider: 07/25/25 13:40 Source: patient, RN notes reviewed and old records reviewed Mode of arrival: ambulatory Limitations: no limitations History of Present Illness HPI Narrative: 84-year-old female who presents to [facility] with complaints 1 week duration with nasal drainage, ear pressure, harsh cough for which she can't get anything to cough up without working at it and then it is white thick mucous. Patient does have a hisory of COPD and has been using her inhalers and also nasal spray and has not felt any better. She reports that she has not had any fevers, chills,or sweats. Patient admits to increased dyspnea with exertion. MD elicited complaint: cough, rhinorrhea, nasal congestion and other (ear pressure) Pertinent past history: COPD Onset (ago): week(s) (1) Severity: moderate Description of mucous: other (white thick mucous) Able to tolerate fluids by mouth: Yes Treatments prior to arrival: ibuprofen and other (inhalers, nasal spray) Related Data Home Medications ?Medication ?Instructions ?Recorded ?Confirmed ?Last Taken ?Type calcium acetate(phosphat bind) 667 667 mg PO DAILY 11/12/19 07/10/25 Unknown History mg capsule cholecalciferol (vitamin D3) 75 3,000 unit PO DAILY 11/12/19 07/10/25 Unknown History mcg (3,000 unit) tablet magnesium 30 mg tablet 30 mg PO DAILY 11/12/19 07/10/25 Unknown History eszopiclone 2 mg tablet 2 mg PO HS 01/25/23 07/10/25 Unknown History acetaminophen 650 mg 650 mg PO Q8H 01/05/24 07/10/25 Unknown History tablet,extended release (Tylenol Arthritis Pain) ascorbic acid (vitamin C) 1,000 mg 1 g PO DAILY 01/10/24 07/10/25 Unknown History capsule budesonide 0.5 mg/2 mL suspension 0.5 mg inhalation DAILY 04/10/25 07/10/25 Unknown History for nebulization Allergies Allergy/AdvReac Type Severity Reaction Status Date / Time adhesive Allergy Unknown Itching Verified 07/10/25 16:40 Sulfa (Sulfonamide Allergy Unknown facial Verified 07/10/25 16:40 Antibiotics) swelling Review of Systems Review of Systems: CONSTITUTIONAL: Denies malaise, chills, sweats, or fever. EYES: Denies visual changes, redness, or discharge. ENT: Reports rhinorrhea, congestion, sinus pain, otalgia and no sore throat. CARDIOVASCULAR: Denies chest pain, palpitations, or edema. RESPIRATORY: Reports harsh cough.?Reports dyspnea with exertion GASTROINTESTINAL: Denies abdominal pain, nausea, vomiting, diarrhea SKIN: Denies rash or itching. MUSCULOSKELETAL: Denies myalgia. NEUROLOGIC: Denies headache. All systems reviewed & are unremarkable except as noted in HPI and below PMFSH Past Medical History Medical History Anemia Polyarthritis Abnormal EKG COPD (chronic obstructive pulmonary disease) Spinal stenosis Stroke Osteoarthritis Migraine Hyperlipidemia GERD (gastroesophageal reflux disease) Fibrocystic breast disease Cataract Hyperglycemia Bipolar 1 disorder Hyperthyroidism Age related osteoporosis Graves disease Chronic renal failure Type 2 diabetes mellitus Pulmonary emphysema Osteopenia of both hips Surgical History Surgical History History of hip replacement Right 06/2022 H/O mastectomy Double 1975 H/O breast surgery 2 Reconstructive H/O neck surgery Family History Family History Father Family history of osteoarthritis Diabetes mellitus Heart disease Sibling Family history of malignant melanoma, Onset Age: 60 Patient's sister is Mother Family history of malignant neoplasm of breast in first degree relative, Onset Age: 56 Patient's mother is Grandparent No problems noted. Other Depression Family history of alcoholism Family history of arthritis Family history of cardiovascular disease Family history of hearing loss Family history of obesity Social History Social History Smoking packs per day: 1 Smoking cigarettes per day: 20.0 Years smoked: 20 Smoking pack-years: 20.00 Smoking status: Former smoker Smoking end date: 11/07/02 Alcohol intake: current Alcohol use details: occasionally Substance use: never Substance use type: does not use Do You Feel Safe in your Home?: Yes Lack of Transportation: No Lack of Food: Never True Current Housing: I Have Housing Concerned About Future Housing: No Difficulty Paying Gas/Electric Bills: No Difficulty Paying for Meds: No Currently Unemployed: No Education: Master's Degree or Higher Difficulty w/ Childcare or Family Care: No Gender identity (if verbalized by the patient): Female Comments At time of signature, agree with nursing past medical, surgical, social and family history. There is no relevant family history pertinent to the presenting complaint Exam Narrative: GENERAL: Well-appearing, well-nourished, and in no acute distress. HEAD: Normocephalic EYES: PERRLA, conjunctivae clear ENT: Nares clear, turbinates edematous and erythematous, clear discharge. Mucous membranes moist. TM pearly watson with dull light reflex bilaterally; no tragal tenderness. Oropharynx erythematous without lesions. Tonsils not enlarged and without exudate, no drooling, no hoarseness, no trismus, uvula midline.post nasal drainage noted NECK: Supple. No lymphadenopathy CHEST: Diminished to auscultation, breath sounds equal. No wheezing, rhonchi, rales, or stridor. No respiratory distress, speaks in full sentences.SAO2 95% on room air HEART: Regular rate and rhythm. No murmur heard. SKIN: Warm, dry, no rash. NEURO: Alert and oriented x3. PSYCH: Normal mood and affect Course Course Emergency Course: Patient is aware of diagnosis, understands and agrees to treatment plan.? Anticipatory guidance given.? Patient agrees to follow-up as directed and is aware of reasons to seek care at the emergency department. Portions of this record may have been created with voice recognition software Level of Care: Express Care Visit Vital Signs Vital signs: Vital Signs Oxygen Delivery Room Air 07/25/25 13:32 Temperature 37.6 C 07/25/25 13:33 Pulse Rate 100 07/25/25 13:33 Respiratory Rate 20 07/25/25 13:33 Blood Pressure 162/72 H 07/25/25 13:33 Pulse Oximetry 95 07/25/25 13:33 Oxygen Delivery Room Air 07/25/25 13:32 Reviewed MDM - URI/Sore Throat MDM Narrative Medical decision making narrative: Differential diagnosis considered: Rodgers virus, strep pharyngitis, allergic rhinitis, upper respiratory tract infection, sinusitis, rhinosinusitis, nasopharyngitis. viral pharyngitis, otitis media, otitis externa, pneumonia, bronchitis, viral cough syndrome, viral syndrome, and influenza.? Exam findings show no acute concerns or changes; patient is non-toxic appearing and is in no distress.? Patient is appropriate for outpatient treatment and follow-up. Differential Diagnosis Differential diagnosis: Likely upper respiratory infection, sinusitis, viral infection, bronchitis and other (exacerbation of COPD) Medical Records Attestation: I reviewed the patient's medical records. Lab Data Attestation: I reviewed the patient's lab results. Imaging Data Attestation: I personally reviewed and interpreted this imaging study as follows: My impression: no acute cardiopulmonary findings Radiologist's impression: [facility] [address] [place] [address] XRay Report Signed Patient: Nikkie Rodríguez : 1940 MR#: [id number] Age: 84 Acct:[id number] Loc: [id number] ADM Date: 07/25/25Attending Dr: Ordering Physician: Janet Pacheco APRN Date of Service: 07/25/25 Procedure(s): XR chest 2V Accession Number(s): [id number] cc: Janet Pacheco APRN; UNKNOWN,DOCTOR~ Examination: XR chest 2V Clinical History: cough and congestion history of copd, sob x 1 week Comparison: 07/10/2025 Technique: PA and Lateral Findings: Cardiomediastinal silhouette normal size and configuration. Lungs clear. Mild hyperinflation and interstitial changes. Calcified granuloma left midlung No acute bony abnormality. Osteopenia. IMPRESSION: 1. No acute cardiopulmonary findings. Reviewed, dictated and finalized at location R. Please be advised this is a medical document. It is intended for [id number] communication. It is written in medical language and may contain unfamiliar abbreviations or verbiage. Medical documents are intended to carry relevant information, facts as evident, and the clinical opinion of the practitioner at the time of the encounter. This report may have been done utilizing a voice recognition system. Attempts have been made to correct errors. However, there may be uncorrected grammatical, spelling, and recognition errors present. The file time of this note does not necessarily represent the time of service. Dictated By: Azar Bonilla MD 07/25/25 1429 Signed By: <Electronically signed by Azar Bonilla MD in OV> Critical Care Time Critical Care Time Critical Care Time: No Discharge Plan Discharge Clinical Impression: COPD exacerbation Patient Disposition: Home Condition: Stable Instructions: Antibiotic Form, Acute Cough (ED) Additional Instructions: Increase fluids especially juices and water [id number] cough and cold medicine of your choice for your symptoms Zyrtec Claritin or Lisa daily Mucinex expectorant make sure you are drinking plenty of fluids with this medicine Continue your inhaler/nebulizer as directed Steroids as directed--take with food heat to the face 20-30 minutes 4-6 times a day for pain Salt water gargles, throat lozenges or throat sprays as desired Antibiotic as directed--finished the medication If your symptoms persist, change or worsen significantly before you can contact your personal physician then please, without delay, go to the emergency department for further evaluation. Follow-up with PCP in 7-10 days or sooner if needed Follow up with PCP soon in regards to your blood pressure which is elevated above threshold for referral. Blood pressure above 120/80 may indicate pre-hypertension. Patient Language: Persian Prescriptions: New azithromycin 250 mg tablet See Rx Instructions .ROUTE .COMPLEX Qty: 6 0RF Rx Instructions: For 250 mg dose pack: take 500 mg today (day 1), then 250 mg for 4 days (days 2-5) prednisone 20 mg tablet 40 mg PO DAILY 5 Days Qty: 10 0RF No Action eszopiclone 2 mg tablet 2 mg PO HS prednisone 20 mg tablet 40 mg PO DAILY 5 Days Qty: 10 0RF doxycycline monohydrate 100 mg capsule 100 mg PO BID 7 Days Qty: 14 0RF ascorbic acid (vitamin C) 1,000 mg capsule 1 g PO DAILY budesonide 0.5 mg/2 mL suspension for nebulization 0.5 mg inhalation DAILY calcium acetate(phosphat bind) 667 mg capsule 667 mg PO DAILY magnesium 30 mg tablet 30 mg PO DAILY cholecalciferol (vitamin D3) 3,000 unit tablet 3,000 unit PO DAILY acetaminophen [Tylenol Arthritis Pain] 650 mg tablet extended release 650 mg PO Q8H Anoro Ellipta 62.5-25 mcg/actuation blister with device 1 inh inhalation Q24H Qty: 60 5RF Rx Instructions: This replaces Incruse. atorvastatin 20 mg tablet 20 mg PO DAILY Qty: 90 1RF Rx Instructions: Take 1 tablet by mouth once daily Follow-up/Referrals: UNKNOWN,DOCTOR [Primary Care Provider] Time of Disposition: 14:45 Quality Everardo Coma Scale Eyes: Open Verbal: Oriented and Alert Motor: Follows Commands [place] Coma Total Score: 15
== END 2025-07-25 14:57 | disposition home or self-care (01) ==
PROVIDERS: Emergency Provider Registered Nurse
DX: J44.1 Chronic obstructive pulmonary disease with (acute) exacerbation (principal); Z87.891 Personal history of nicotine dependence; E11.22 Type 2 diabetes mellitus with diabetic chronic kidney disease; N18.9 Chronic kidney disease, unspecified; E05.00 Thyrotoxicosis with diffuse goiter without thyrotoxic crisis or storm; E05.90 Thyrotoxicosis, unspecified without thyrotoxic crisis or storm; K21.9 Gastro-esophageal reflux disease without esophagitis; E78.5 Hyperlipidemia, unspecified; M48.00 Spinal stenosis, site unspecified; Z86.73 Personal history of transient ischemic attack (TIA), and cerebral infarction without residual deficits; Z96.641 Presence of right artificial hip joint; Z90.13 Acquired absence of bilateral breasts and nipples
CPT/HCPCS: 71046; 99213; G0463